=== PATIENT | female | born 1950 | race Caucasian/White ===

== ENCOUNTER 2016-03-03 16:37 | Inpatient (IN) | payer BC, OTHER ==
[2016-03-03 17:05] VITALS: BMI 11.0
--- NOTE | 2016-03-03 17:12 | PDOC ---
History of Present Illness - General Chief Complaint: Altered Mental Status Stated Complaint: CONFUSED Time Seen by Provider: 03/03/16 17:11 History Source: Patient, Family Exam Limitations: Clinical Condition - History of Present Illness Initial Comments: 03/03/16 20:25 The patient is a 65 year old female accompanied by her with a significant past medical history of end-stage renal disease, dialysis (T, , Mon, last dialysis monday), COPD, hypertension, and throat cancer s/p chemo 8 weeks ago) who presents to the Emergency Department with dyspnea for 20 minutes prior to arrival and altered mental status. As per the , the patient has not been acting herself all day. He states the patient was fine yesterday, but did not sleep last night. The states that the patient has increased her oxygen from 2 to 4 L this week secondary to sob. The patient has had bilateral lower extremity edema for the past 3 weeks. The patient denies fever, chills, abdominal pain, nausea, vomiting, dysuria, chest pain, headache, dizziness. As per , the patient missed her dialysis today. History is limited. 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 Pena Past History - Past Medical History Allergies/Adverse Reactions: Allergies Allergy/AdvReac Type Severity Reaction Status Date / Time No Known Drug Allergies Allergy Verified 03/03/16 17:01 Home Medications: Ambulatory Orders Albuterol 2.5/Ipratropium 0.5 [Duoneb -] 1 neb IH QID 07/15/15 Multivitamins with Iron [Daily Isadora with Iron] 1 each PO DAILY 07/15/15 Nifedipine ER [Procardia XL -] 90 mg PO DAILY 07/15/15 Paroxetine HCl 30 mg PO DAILY 07/15/15 Tiotropium [place] [Spiriva] 1 inh PO DAILY 07/15/15 Enalapril Maleate [Vasotec -] 20 mg PO BID #60 tablet 07/17/15 Labetalol HCl [Normodyne -] 400 mg PO TID #180 tablet 07/17/15 Sevelamer Carbonate [Renvela -] 800 mg PO TID 09/29/15 Budesonide/Formeterol Fumarate [SYMBICORT 160/4.5mcg -] 1 inh PO BID 10/13/15 Furosemide [Lasix -] 80 mg PO DAILY #30 tablet 10/15/15 Anemia: Yes Asthma: No Cancer: No Cardiac Disorders: No CVA: No COPD: Yes CHF: No Dementia: No Diabetes: No Dialysis: Yes (right chest shiley, dialysis tue/thurs/sat) GI Disorders: No Disorders: No HTN: Yes Hypercholesterolemia: No Liver Disease: No Seizures: No Thyroid Disease: No - Surgical History Abdominal Surgery: No Appendectomy: No Cardiac Surgery: No Cholecystectomy: No Lung Surgery: No Neurologic Surgery: No Orthopedic Surgery: Yes (2009 LAMINECTOMY) - Immunization History Immunization Up to Date: Yes - Psycho/Social/Smoking Cessation Hx Anxiety: No Suicidal Ideation: No Smoking History: Former smoker Have you smoked in the past 12 months: Yes Number of Cigarettes Smoked Daily: 10 If you are a former smoker, when did you quit?: 2016 Cigars Per Day: 0 Information on smoking cessation initiated: No 'Breaking Loose' booklet given: 09/16/15 Hx Alcohol Use: No Drug/Substance Use Hx: No Substance Use Type: None Hx Substance Use Treatment: No Review of Systems - Review of Systems Comments:: 03/03/16 20:26 Constitutional - +dedreeased appeptite no reported Fever, Chills, weakness, HEENT: no reported vision changes, sore throat Respiratory: +sob no reported cough, hemoptysis Cardiac: no reported chest pain, palpitations, light headedness, leg swelling Abd/GI: no reported abd pain, nausea, vomiting, blood per rectum, melena, diarrhea : no reported dysuria, frequency, discharge Musculskelatal - no reported back pain, joint swelling skin - no reported bruising, erythema, rash neurological: +ams no reported headache, numbness, focal weakness, tingling, ataxia, weakness hematologic: no reported anemia, easy bruising, easy bleeding *Physical Exam - Vital Signs Last Vital Signs Temp Pulse Resp BP Pulse Ox 96.3 F L 57 L 24 147/77 03/03/16 17:01 03/03/16 17:01 03/03/16 17:01 03/03/16 17:01 - Physical Exam Comments: 03/03/16 20:27 GENERAL: The patient is awake, alert x oriented x 2 (self, place) tachypneic, cachectic appearing, generally weak appearing HEAD: Normocephalic, atraumatic. EYES: extraocular movements intact, sclera anicteric, conjunctiva clear. ENT: Normal voice, dry mucous membranes. NECK: Normal range of motion, supple LUNGS: distant breath sounds likely due to body habitus HEART: Regular rate and rhythm, normal S1 and S2 without murmur, rub or gallop. ABDOMEN: G tube in place, Soft, nontender, normoactive bowel sounds. No guarding, no rebound. EXTREMITIES: Normal range of motion, mild edema on feet without tenderness. NEUROLOGICAL: No facial assymetry, Normal speech, moving all 4 extremities spontnaeously and symmetrically PSYCH: Normal mood, normal affect. SKIN: Warm, Dry, normal turgor, Heart Score/ECG Review - ECG Impressions Comment:: 03/03/16 20:31 Twelve-lead EKG was performed and reviewed by me. There is normal sinus rhythm with a HR of 56. lvh with repolarization. sinus bradycardia ED Treatment Course - LABORATORY CBC & Chemistry Diagram: 03/03/16 17:04 03/03/16 17:04 - RADIOLOGY Radiology Studies Ordered: Category Date Time Status CHEST X-RAY PORTABLE* [RAD] Stat Radiology 03/03/16 17:03 Ordered Medical Decision Making - Medical Decision Making 03/03/16 17:23 65y F hx of ESRD s/p dialysis, throat ca s/p chemo radiation (several months ago ), Tu presents with respiratorey distress and AMS - The patient seems to have been deteriating gradually over the past week with decraesd oral intake, on exam the pt appears tachpneic, distatant breath sounds secondary to her body habitus differential includes occult infection, metabolic dernagement, dehydration pt given fluids for hydration will ck xray, ua, labs will reassess 03/03/16 20:32 case d/w dr. pena leukocyotosis of 21 recommends starting abx for broad coverage as pt is immunocomprimozed due to ESRD will give pt vanc and cefepime pts k at 5.2, does not need immediate dialysis cxr c/w mild congestion. pts labs also noted for hypoglycemia - pts mental and respiratory status improved after gettnig D50 will admi tpt for further management I spent ~35 minutes of Critical Care time, excluding separately billable procedures, involving high complexity decision making to assess, manipulate and support vital system function(s) to treat single or multiple vital organ system failure and/or to prevent further life threatening deterioration of the patient' s condition. 03/03/16 20:[address] olivarez agreed with mangement will admit to telemetry Case discussed in detail with admitting physician including history, physical exam and ancillary studies. Admitting physician has assumed care for the patient, will follow all pending diagnostics and will complete the evaluation and treatment. *DC/Admit/Observation/Transfer Diagnosis at time of Disposition: ESRD (end stage renal disease), Hypoglycemia Leukocytosis Qualifiers: Leukocytosis type: unspecified Qualified Code(s): D72.829 - Elevated white blood cell count, unspecified - Discharge Dispostion Admit: Yes - Referrals Referrals: Christoph Lemons [Primary Care Provider] -
[2016-03-03] MEDS ORDERED: SODIUM CHLORIDE 1,000 ML IV ONE (17:22)
[2016-03-03 17:38] LABS: ARTERIAL BLD GAS O2 SATURATION 98.9 % (90-98.9); ARTERIAL BLOOD GAS BASE EXCESS -2.7 meq/l (-2-2); ARTERIAL BLOOD GAS HCO3 23.2 meq/L (22-26)
[2016-03-03 17:39] LABS: ALLENS TEST POSITIVE; ART PUNCT SITE RIGHT RADIAL; LPM/O2% 4L; PT. ON O2? YES; TYPE OF O2 NASAL
[2016-03-03 18:27] LABS: ALBUMIN 2.3 g/dl (3.4-5.0); BILIRUBIN,TOTAL 0.5 mg/dL (0.2-1.0); CREATININE 4.7 mg/dL (0.55-1.02)
[2016-03-03 18:29] LABS: TROPONIN I 0.07 ng/ml (0.00-0.05)
[2016-03-03 18:30] LABS: MCH 29.6 pg (25.7-33.7); MCHC 29.9 g/dl (32.0-36.0); MEAN CELL VOLUME 99.1 fl (80-96); MEAN PLT VOLUME 8.3 fl (7.5-11.1); PLATELET COUNT 268 K/MM3 (134-434); RDW 20.7 % (11.6-15.6); WHITE BLOOD COUNT 21.2 K/mm3 (4.0-10.0)
[2016-03-03 18:31] LABS: INR 1.24 (0.82-1.09); PROTHROMBIN TIME (PATIENT) 13.7 SEC (9.98-11.88)
[2016-03-03] MEDS ORDERED: DEXTROSE 50%-WATER 50 ML DISP.SYRIN ONE (18:58)
[2016-03-03] MEDS ORDERED: DEXTROSE 50%-WATER 50 ML VIAL IVPUSH ONE (19:04)
[2016-03-03] MEDS ORDERED: VANCOMYCIN 1,000 MG in DEXTROSE 5%-WATER - 250 ML IVPB ONE (20:24)
[2016-03-03] MEDS ORDERED: CEFEPIME HCL 2 GM VIAL (RESTRICTED TO ID) IVPB ONE (20:24)
[2016-03-03] MEDS ORDERED: CEFEPIME 100 ML IVPB ONE (20:26)
[2016-03-03] MEDS ORDERED: VANCOMYCIN 1 GRAM (PRE-DOCKED) 250 ML IVPB ONE (20:26)
[2016-03-03] MEDS ORDERED: HEPARIN NA (PORCINE) 5,000 UNITS/ML 1ML VIAL SQ SCH (20:45)
[2016-03-03 21:06] LABS: URINE APPEARANCE CLOUDY; URINE BILIRUBIN NEGATIVE (NEGATIVE); URINE COLOR DKYELLOW; URINE GLUCOSE (UA) NEGATIVE (NEGATIVE); URINE KETONE NEGATIVE (NEGATIVE); URINE LEUK ESTERASE NEGATIVE (NEGATIVE); URINE NITRITE NEGATIVE (NEGATIVE); URINE UROBILINOGEN NEGATIVE E.U./dl (0.2-1.0)
--- NOTE | 2016-03-03 21:12 | HP ---
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 As per , pt not herself today. Also with increased B/ L LE edema x 3 weeks and decreased appetite. On exam, pt with no acute complaints. Denies current SOB, pain, N/V/D. States her cough is the same as it always is. ER course was notable for: (1) WBC 21.2 (2) Hgb 9.5 (3) CXR with mild congestion Recent Travel: pt denies PAST MEDICAL HISTORY: ESRD on dialysis T,,Sa, HTN throat CA last chemo 8 weeks ago anemia PAST SURGICAL HISTORY: lumbar spine surgery R upper chest mediport L AV graft upper arm G tube hysterectomy Social History: Smokin packs/day for 50 years; currently smokes 1/2 pack /day Alcohol: pt denies Drugs: pt denies Family History: Mother - breast cancer Father - COPD Sister - depression, suicide Allergies No Known Drug Allergies Allergy (Verified 03/03/16 17:01) HOME MEDICATIONS: 3 Medication Instructions Recorded Albuterol 2.5/Ipratropium 0.5 1 neb IH QID 07/15/15 [Duoneb -] Multivitamins with Iron [Daily 1 each PO DAILY 07/15/15 Isadora with Iron] Nifedipine ER [Procardia XL -] 90 mg PO DAILY 07/15/15 Paroxetine HCl 30 mg PO DAILY 07/15/15 Tiotropium [place] [Spiriva] 1 inh PO DAILY 07/15/15 Enalapril Maleate [Vasotec -] 20 mg PO BID #60 tablet 07/17/15 Labetalol HCl [Normodyne -] 400 mg PO TID #180 tablet 07/17/15 Sevelamer Carbonate [Renvela -] 800 mg PO TID 09/29/15 Budesonide/Formeterol Fumarate 1 inh PO BID 10/13/15 [SYMBICORT 160/4.5mcg -] Furosemide [Lasix -] 80 mg PO DAILY #30 tablet 10/15/15 REVIEW OF SYSTEMS CONSTITUTIONAL: Present: generalized weakness, malaise, loss of appetite Absent: fever, chills, diaphoresis, weight change HEENT: Absent: rhinorrhea, nasal congestion, throat pain, throat swelling, difficulty swallowing, mouth swelling, ear pain, eye pain, visual changes CARDIOVASCULAR: Absent: chest pain, syncope, palpitations, irregular heart rate, lightheadedness , peripheral edema RESPIRATORY: Present: moist cough, shortness of breath Absent: wheezing, stridor, hemoptysis GASTROINTESTINAL: last BM today Absent: abdominal pain, abdominal distension, nausea, vomiting, diarrhea, constipation, melena, hematochezia GENITOURINARY: Absent: dysuria, frequency, urgency, hesitancy, hematuria, flank pain, genital pain MUSCULOSKELETAL: Absent: myalgia, arthralgia, joint swelling, back pain, neck pain SKIN: Absent: rash, itching, pallor HEMATOLOGIC/IMMUNOLOGIC: Absent: easy bleeding, easy bruising, lymphadenopathy, frequent infections ENDOCRINE: Absent: unexplained weight gain, unexplained weight loss, heat intolerance, cold intolerance NEUROLOGIC: Absent: headache, focal weakness or paresthesias, dizziness, unsteady gait, seizure, mental status changes, bladder or bowel incontinence PSYCHIATRIC: Absent: anxiety, depression, suicidal or homicidal ideation, hallucinations. PHYSICAL EXAMINATION Vital Signs - 24 hr 3 03/03/16 03/03/16 03/03/16 17:01 19:16 20:36 Temperature 96.3 F L Pulse Rate 57 L Pulse Rate [ 53 L 56 L Apical] Respiratory 24 16 Rate Blood Pressure 147/77 Blood Pressure 134/78 120/68 [Right Arm] GENERAL: Awake, alert, and oriented to person, place and year, not month or day. in no acute distress. + cachectic HEAD: Normal with no signs of trauma. EYES: Pupils equal, round and reactive to light, extraocular movements intact, sclera anicteric, conjunctiva clear. No lid lag. EARS, NOSE, THROAT: Ears normal, nares patent, oropharynx clear without exudates. Dry mucous membranes. NECK: Normal range of motion, supple without lymphadenopathy, JVD, or masses. LUNGS: Breath sounds equal, clear to auscultation bilaterally. No wheezes, and no crackles. No accessory muscle use. diminished bases HEART: Regular rate and rhythm, normal S1 and S2 without murmur, rub or gallop. ABDOMEN: Soft, nontender, not distended, normoactive bowel sounds, no guarding, no rebound, no masses. No hepatomegaly or splenomegaly. MUSCULOSKELETAL: Normal range of motion at all joints. No bony deformities or tenderness. No CVA tenderness. UPPER EXTREMITIES: 2+ pulses, warm, well-perfused. No cyanosis. No clubbing. Cap refill <2 seconds. No peripheral edema. LOWER EXTREMITIES: 2+ pulses, warm, well-perfused. No calf tenderness. 2+ pitting edema bilat feet, no edema lower legs NEUROLOGICAL: Cranial nerves II-XII intact. Normal speech. Normal gait. PSYCHIATRIC: Cooperative. Good eye contact. Appropriate mood and affect. SKIN: Warm, dry, normal turgor, Rash noted to face, above eyebrows, left cheek, perioral and nasal areas. + yellow crusting with scabs. No pain. Laboratory Results - last 24 hr 3 03/03/16 03/03/16 03/03/16 17:04 17:04 17:04 WBC 21.2 H D RBC 3.19 L Hgb 9.5 L Hct 31.6 L MCV 99.1 H MCHC 29.9 L RDW 20.7 H D Plt Count 268 MPV 8.3 D Neutrophils % Y Lymphocytes % Y INR 1.24 H Puncture Site ABG pH ABG pCO2 at Pt Temp ABG pO2 at Pt Temp ABG HCO3 ABG O2 Sat (Measured) ABG O2 Content ABG Base Excess Ezekiel Test O2 Delivery Device Oxygen Flow Rate PEEP Sodium 140 Potassium 5.2 H D Chloride 102 Carbon Dioxide 24 Anion Gap 14 BUN 66 H D Creatinine 4.7 H D Creat Clearance w eGFR 9.39 Random Glucose 43 L* D Lactic Acid Calcium 8.0 L Total Bilirubin 0.5 D AST 20 D ALT 20 Alkaline Phosphatase 132 H D Creatine Kinase 44 Troponin I 0.07 H Total Protein 6.0 L Albumin 2.3 L D 3 03/03/16 03/03/16 17:04 17:35 WBC RBC Hgb Hct MCV MCHC RDW Plt Count MPV Neutrophils % Lymphocytes % INR Puncture Site Right radial ABG pH 7.30 L ABG pCO2 at Pt Temp 48.5 H ABG pO2 at Pt Temp 146.0 H D ABG HCO3 23.2 ABG O2 Sat (Measured) 98.9 ABG O2 Content 12.5 L ABG Base Excess -2.7 L Ezekiel Test Positive O2 Delivery Device Nasal Oxygen Flow Rate 4l PEEP 0.0 Sodium Potassium Chloride Carbon Dioxide Anion Gap BUN Creatinine Creat Clearance w eGFR Random Glucose Lactic Acid 1.782 Calcium Total Bilirubin AST ALT Alkaline Phosphatase Creatine Kinase Troponin I Total Protein Albumin 3 Urine Color Dkyellow 03/03/16 20:50 Urine Appearance Cloudy 03/03/16 20:50 Urine pH 5.0 (5.0-8.0) D 03/03/16 20:50 Ur Specific [place] 1.021 (1.001-1.035) 03/03/16 20:50 Urine Protein 2+ (NEGATIVE) H 03/03/16 20:50 Urine Glucose (UA) Negative (NEGATIVE) 03/03/16 20:50 Urine Ketones Negative (NEGATIVE) 03/03/16 20:50 Urine Blood 1+ (NEGATIVE) H 03/03/16 20:50 Urine Nitrite Negative (NEGATIVE) 03/03/16 20:50 Urine Bilirubin Negative (NEGATIVE) 03/03/16 20:50 Ur Leukocyte Esterase Negative (NEGATIVE) 03/03/16 20:50 Urine RBC <1 /hpf (0-3) 03/03/16 20:50 Urine WBC 3 /hpf (3-5) 03/03/16 20:50 Ur Epithelial Cells Few /hpf (FEW) 03/03/16 20:50 Urine Mucus Rare 03/03/16 20:50 CXR: Impression: Cardiomegaly and probable mild congestion ECG: sinus bradycardia with a HR of 56. No ST/T changes ASSESSMENT/PLAN: 65yF with PMH ESRD, anemia, COPD, HTN, throat CA presented to the ED with SOB and altered mental status. Leukocytosis - unclear etiology. Given cefepime and vanco in the ED - ID consult - Will treat for pneumonia given moist cough despite neg CXR. cont cefepime 1g q24h (after dialysis on dialysis days) dehydration - clinically appears dry despite dialysis status. - 1L NS bolus given in ED and still appears dry, cont NS @ 50mL/hr x 1 liter ESRD - missed dialysis today - renal consult for dialysis elevated troponin - trend same, unlikely ACS, no chest pain - if trending up, start ASA and plavix - cardiology consult impetigo - mupirocin ointment to rash on face hypoglycemia - given D50 in ED - monitor FSBS q4h, start IVF with dextrose if less than 70 HTN - cont home medications DVT PPX - heparin 5000u BID FEN - NS @50cc/hr - potassium 5.2, repeat in am - regular diet as tolerated. Would consider initiation of tube feed if in agreement with goals of care. Dispo: Pt currently requires inpatient care. Needs determination of goals of care given poor nutritional status, cachectic state. Visit type - Emergency Visit Emergency Visit: Yes ED Registration Date: 03/03/16 Care time: The patient presented to the Emergency Department on the above date and was hospitalized for further evaluation of their emergent condition. - New Patient This patient is new to me today: Yes Date on this admission: 03/03/16 - Critical Care Critical Care patient: No
[2016-03-03 21:19] LABS: URINE BLOOD 1+ (NEGATIVE); URINE PROTEIN 2+ (NEGATIVE)
[2016-03-03 21:21] LABS: URINE HYALINE CAST 8 /lpf; URINE MUCUS RARE; URINE RBC <1 /hpf (0-3); URINE WBC 3 /hpf (3-5)
[2016-03-03] MEDS ORDERED: SODIUM CHLORIDE 1,000 ML IV SCH (22:45)
[2016-03-03 23:23] LABS: PLATELET ESTIMATE ADEQUATE (NORMAL)
[2016-03-03 23:24] LABS: ANISOCYTOSIS 2+; HYPOCHROMIA 2+; TEAR DROP CELLS FEW
[2016-03-04] MEDS ORDERED: ALBUTEROL SO4 0.083% IH SOL 2.5 MG/3 ML VIAL.NEB. NEB SCH
[2016-03-04] MEDS: HEPARIN NA (PORCINE) 5,000 UNITS/ML 1ML VIAL SQ SCH ×3 (00:34→21:31)
[2016-03-04] MEDS: MUPIROCIN 2% TOPICAL OINTMENT 22 GM TUBE TP SCH ×3 (00:34→21:30)
[2016-03-04] MEDS: BUDESONIDE/FORMETEROL FUMARATE 160/4.5 mcg INHALER IH SCH ×2 (00:37→09:42)
[2016-03-04] MEDS: ACLIDINIUM BROMIDE 400 MCG/INH AERO.POWD IH SCH ×3 (00:37→10:12)
[2016-03-04] MEDS: ENALAPRIL MALEATE 10 MG TABLET (FP) PO SCH ×2 (01:50→09:44)
[2016-03-04] MEDS: LABETALOL HCL 200 MG TABLET (FP) PO SCH ×2 (01:50→06:40)
[2016-03-04 03:42] LABS: TROPONIN I 0.06 ng/ml (0.00-0.05)
[2016-03-04] MEDS ORDERED: PT OWN MED DRAWER 7, Y5N ONE ×2 (05:28→05:36)
[2016-03-04] MEDS ORDERED: DEXTROSE 50%-WATER 50 ML DISP.SYRIN ONE (06:16)
[2016-03-04] MEDS ORDERED: DEXTROSE 50%-WATER 50 ML VIAL IVPUSH ONE ×2 (06:30→15:57)
[2016-03-04] MEDS ORDERED: DEXTROSE 5%-NORMAL SALINE 1,000 ML IV SCH (06:45)
--- NOTE | 2016-03-04 06:50 | HOSP ---
Subjective - Review of Symptoms Subjective: Called by nurse who reported pt sugar 50. Pt alert, responsive, no acute complaints. Physical Examination Vital Signs: Vital Signs Temperature 97.4 F L 03/04/16 02:31 Pulse Rate 58 L 03/04/16 02:31 Respiratory Rate 16 03/04/16 02:31 Blood Pressure 129/68 03/04/16 02:31 O2 Sat by Pulse Oximetry (%) Cardiovascular: Yes: Regular Rate and Rhythm Respiratory: Yes: Regular, CTA Bilaterally, Other (pulse ox 94% on 2LNC). No: Rales, Rhonchi Hospitalist Encounter Assessment: Hypoglycemia - D50 ordered. Change IVF to D5NS@50cc/hr. Repeat BGM in 1 hour, cont BGM q4h.
[2016-03-04 07:51] LABS: BASOPHIL 0.5 % (0-2.0); MCH 30.4 pg (25.7-33.7); MCHC 30.8 g/dl (32.0-36.0); MEAN CELL VOLUME 98.9 fl (80-96); NEUTROPHILS 95.9 % (42.8-82.8); PLATELET COUNT 224 K/MM3 (134-434); RDW 20.3 % (11.6-15.6); WHITE BLOOD COUNT 21.1 K/mm3 (4.0-10.0)
[2016-03-04 08:19] LABS: ALBUMIN 2.1 g/dl (3.4-5.0); BILIRUBIN,TOTAL 0.5 mg/dL (0.2-1.0); CALCIUM 7.1 mg/dL (8.5-10.1); CREATININE 4.8 mg/dL (0.55-1.02); MAGNESIUM 1.9 mg/dL (1.8-2.4); TOT PROT 5.5 g/dl (6.4-8.2)
[2016-03-04] MEDS: SEVELAMER CARBONATE 800 MG TAB (FP) PO SCH ×3 (08:20→18:58)
[2016-03-04 08:48] LABS: PHOSPHOROUS 7.9 mg/dL (2.5-4.9)
[2016-03-04 08:54] LABS: TROPONIN I 0.06 ng/ml (0.00-0.05)
--- NOTE | 2016-03-04 09:11 | EKG ---
Test Reason : Blood Pressure : / mmHG Vent. Rate : 056 BPM Atrial Rate : 056 BPM P-R Int : 148 ms QRS Dur : 090 ms QT Int : 472 ms P-R-T Axes : 078 077 074 degrees QTc Int : 455 ms POOR DATA QUALITY, INTERPRETATION MAY BE ADVERSELY AFFECTED SINUS BRADYCARDIA POSSIBLE LEFT ATRIAL ENLARGEMENT LEFT VENTRICULAR HYPERTROPHY WITH REPOLARIZATION ABNORMALITY ABNORMAL ECG Confirmed by WILD LEE MD ([id number]) on 03/04/2016 9:10:50 AM Referred By: Overread By: WILD LEE MD
[2016-03-04] MEDS ORDERED: NIFEdipine E.R. 90 MG TABLET (FP) PO SCH (10:00)
[2016-03-04] MEDS ORDERED: MULTIVITAMINS (DAILY MVI) TABLET (FP) PO SCH (10:00)
[2016-03-04] MEDS ORDERED: FUROSEMIDE 40 MG TABLET (FP) PO SCH (10:00)
[2016-03-04] MEDS ORDERED: CEFEPIME HCL 2 GM VIAL (RESTRICTED TO ID) IVPB SCH (10:00)
[2016-03-04] MEDS ORDERED: PARoxetine HCL 10 MG TABLET (FP) PO SCH (10:00)
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
--- NOTE | 2016-03-04 12:31 | PN ---
Progress Note (short form) - Note Progress Note: PULMONARY CONSULTATION DICTATED 03/04/16 IMP ACUTE ON CHRONIC HYPOXEMIC/HYPERCAPNEIC RESPIRATORY FAILURE END STAGE COPD LIKELY ASPIRATION H/O THROAT CA S/P RT/CHEMO ESRD ON HD HTN PLAN INHALED BRONCHODILATORS O2 BIPAP PRN ANTIBIOTICS ASPIRATION PRECAUTIONS HD PER RENAL F/U CHEST X-RAY ABG PALLATIVE CARE EVALUATION OVERALL PROGNOSIS POOR DR PARADA Problem List - Problems (1) COPD (chronic obstructive pulmonary disease) case management patient Code(s): [id number] - (2) Leukocytosis Code(s): D72.829 - ELEVATED WHITE BLOOD CELL COUNT, UNSPECIFIED Qualifiers: Leukocytosis type: unspecified Qualified Code(s): D72.829 - Elevated white blood cell count, unspecified (3) ESRD (end stage renal disease) Code(s): N18.6 - END STAGE RENAL DISEASE (4) Acute respiratory failure with hypoxemia Code(s): J96.01 - ACUTE RESPIRATORY FAILURE WITH HYPOXIA (5) COPD exacerbation Code(s): J44.1 - CHRONIC OBSTRUCTIVE PULMONARY DISEASE W (ACUTE) EXACERBATION (6) Pneumonia Code(s): J18.9 - PNEUMONIA, UNSPECIFIED ORGANISM Qualifiers: Pneumonia type: due to unspecified organism Laterality: right Lung location: unspecified part of lung Qualified Code(s): J18.9 - Pneumonia, unspecified organism (7) Renal failure Code(s): N19 - UNSPECIFIED KIDNEY FAILURE (8) Smoker Code(s): F17.200 - NICOTINE DEPENDENCE, UNSPECIFIED, UNCOMPLICATED (9) Tobacco dependence Code(s): F17.200 - NICOTINE DEPENDENCE, UNSPECIFIED, UNCOMPLICATED (10) Anemia, chronic renal failure Code(s): N18.9 - CHRONIC KIDNEY DISEASE, UNSPECIFIED D63.1 - ANEMIA IN CHRONIC KIDNEY DISEASE Qualifiers: Chronic kidney disease stage: stage 4 (severe) Qualified Code(s): N18.4 - Chronic kidney disease, stage 4 (severe); D63.1 - Anemia in chronic kidney disease (11) Acute on chronic respiratory failure with hypoxia and hypercapnia Code(s): J96.21 - ACUTE AND CHRONIC RESPIRATORY FAILURE WITH HYPOXIA J96.22 - ACUTE AND CHRONIC RESPIRATORY FAILURE WITH HYPERCAPNIA
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
[2016-03-04] MEDS ORDERED: ALBUTEROL SO4 2.5/IPRATROPIUM 0.5 INH SOL 3 ML VIAL.NEB. NEB PRN (12:47)
--- NOTE | 2016-03-04 14:27 | CONS ---
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 She was admitted to [facility] on March 03 with complaint of increasing shortness of breath. The patient is chronically dyspneic. Apparently on the day of admission she started develop worsening dyspnea and altered mental status. According to the patient's , she was not acting herself throughout the day, and she was fine the day prior. The patient denied any chest pain, nausea, vomiting, diaphoresis. Denied hemoptysis. The patient was admitted. On admission, she was felt to have possible aspiration pneumonia. She was placed on antibiotic therapy as well as inhaled bronchodilators and O2. PAST MEDICAL HISTORY: Again, includes throat cancer. Last chemotherapy 2 months ago. Spine surgery. End-stage renal disease on hemodialysis. COPD on O2. Hypertension. SOCIAL HISTORY: Tobacco. No occupational exposures. CURRENT MEDICATIONS: Include Vasotec, Symbicort, Zosyn, Bactroban, Paxil, Tudorza, albuterol, Lasix, Procardia, Tab-A-Isadora, Renvela. REVIEW OF SYSTEMS: Positive dyspnea. No chest pain, no palpitations. No abdominal pain. PHYSICAL EXAMINATION: General: The patient is a markedly cachectic white female well developed, dyspneic at rest. Vital Signs: She is currently afebrile. Heart rate is 56, O2 saturation is 90 % on 2 L, respiratory rate 18, blood pressure 131/75. HEENT: Normocephalic and atraumatic. Neck: Supple. Heart: Regular with S1, S2. Chest: Diminished breath sounds bilaterally. Abdomen: Soft. Bowel sounds positive. Extremities: No cyanosis or edema. LABORATORIES: INR 1.24, WBC 21.1, hemoglobin 9.2, hematocrit 30, platelet count 224,000. Blood gas: PH 7.30, PCO2 of 48, PO2 of 146, bicarbonate 23, and saturation of 98. That was on 4 L nasal O2. Chemistries: BUN 74, creatinine 4.8, glucose 474. Chest x-ray: Cardiomegaly, mild congestion. IMPRESSION: 1. Acute on chronic hypoxemic hypercapnic respiratory failure. 2. Likely aspiration pneumonia. 3. Advanced chronic obstructive pulmonary disease on oxygen. 4. Throat cancer status post chemotherapy. 5. End-stage renal disease on hemodialysis. 6. Hypertension. PLAN: IV antibiotics as per Infectious Disease. Supplemental O2. Inhaled bronchodilators. Nutritional support. Hemodialysis as per Renal. Overall prognosis is poor. MIKE PARADA M.D. [id number] MTDD
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
[2016-03-04] MEDS ORDERED: SODIUM CHLORIDE 1,000 ML IV STA (15:41)
[2016-03-04] MEDS ORDERED: DEXTROSE 50%-WATER 50 ML VIAL ONE (15:44)
[2016-03-04] MEDS ORDERED: DOPAMINE 400 MG/D5W - 250 ML IVPB SCH (15:45)
--- NOTE | 2016-03-04 15:48 | PN ---
Teaching Attending Note Name of Resident: Cory Pardo (Nephrology) ATTENDING PHYSICIAN STATEMENT I saw and evaluated the patient. I reviewed the resident's note and discussed the case with the resident. I agree with the resident's findings and plan as documented. Nephrology Consult Please see resident consult. Pt is a 65 year old female with pmhx of esrd copd htn and throat cancer. She came to hospital for shortness of breath and failure to thrive. She was found to be hypotensive this morning and a rapid response was called. She missed HD yesterday as she did not feel well. She has lost weight and has not been eating. PMHX esrd copd htn throat cancer pshx av graft social hx smoker ros sob family hx neg Impression 1. ESRD 2. dyspnea 3. COPD 4. throat cancer 5. respiratory failure requiring bipap 6. hyperkalemia 7. anemia Plan - upgrade to ICU - will attempt to dialyze if she stabilized - spoke to at length, she is DNR and DNI now, however he still wants her to be treated - stop all bp meds - pt did receive her bp meds in the am - send cultures - monitor bp closely Dr Pena
[2016-03-04] MEDS ORDERED: PIPERACILLIN/TAZOB 2.25 GM 50 ML IVPB SCH (18:00)
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
[2016-03-04] MEDS: PIPERACILLIN/TAZOB 2.25 GM 50 ML IVPB SCH (19:32)
[2016-03-04] MEDS: ARFORMOTEROL TARTRATE 15 MCG/2 ML VIAL NEB SCH (21:30)
[2016-03-04] MEDS ORDERED: ARFORMOTEROL TARTRATE 15 MCG/2 ML VIAL NEB SCH (22:00)
--- NOTE | 2016-03-04 22:07 | CONSULT ---
Consult Consult Specialty:: PULM / CRITICAL CARE Referred by:: Dr Vivar Reason for Consultation:: Respiratory failure, hypotension - History of Present Illness Chief Complaint: SOB History of Present Illness: 65 F with invasive throat CA s/p chemo and XRT, is ESRD on HD TIW, cachetic/ emaciated (27kg), was transferred to the ICU from the floor with AMS, hypotension and respiratory distress requiring NIPPV and Dopamine for BP support. She was made DNR/DNI by her family, she is now normotensive following fluid boluses and off Dopamine, she is ventilating and oxygenating well on NIPPV and awake and following commands. CXR looks hyperinflated and the retrocardiac space is hard to visualize, but can's exclude opacity/infiltrate. - History Source History Provided By: Medical Record, Transfer Record Limitations to Obtaining History: Clinical Condition - Past Medical History Cardio/Vascular: Yes: HTN Pulmonary: Yes: COPD Renal/: Yes: Renal Inusuff, Hemodialysis Musculoskeletal: Yes: Chronic low back pain - Past Surgical History Past Surgical History: Yes: AV Fistula/Graft - Alcohol/Substance Use Hx Alcohol Use: No - Smoking History Smoking history: Former smoker Have you smoked in the past 12 months: Yes Aproximately how many cigarettes per day: 10 If you are a former smoker, when did you quit?: 2016 - Social History ADL: Independent History of Recent Travel: No Home Medications - Allergies Allergies/Adverse Reactions: Allergies Allergy/AdvReac Type Severity Reaction Status Date / Time No Known Drug Allergies Allergy Verified 03/03/16 17:01 - Home Medications Home Medications: Ambulatory Orders Albuterol 2.5/Ipratropium 0.5 [Duoneb -] 1 neb IH QID 07/15/15 Multivitamins with Iron [Daily Isadora with Iron] 1 each PO DAILY 07/15/15 Nifedipine ER [Procardia XL -] 90 mg PO DAILY 07/15/15 Paroxetine HCl 30 mg PO DAILY 07/15/15 Tiotropium [place] [Spiriva] 1 inh PO DAILY 07/15/15 Enalapril Maleate [Vasotec -] 20 mg PO BID #60 tablet 07/17/15 Labetalol HCl [Normodyne -] 400 mg PO TID #180 tablet 07/17/15 Sevelamer Carbonate [Renvela -] 800 mg PO TID 09/29/15 Budesonide/Formeterol Fumarate [SYMBICORT 160/4.5mcg -] 1 inh PO BID 10/13/15 Furosemide [Lasix -] 80 mg PO DAILY #30 tablet 10/15/15 Family Disease History - Family Disease History Family Disease History: CA: Mother, Other: Father Review of Systems Unable to obtain ROS, reason: AMS Physical Exam Vital Signs: Vital Signs Temperature 97.2 F L 03/04/16 15:24 Pulse Rate 52 L 03/04/16 20:00 Respiratory Rate 16 03/04/16 20:00 Blood Pressure 126/75 03/04/16 20:00 O2 Sat by Pulse Oximetry (%) 98 03/04/16 17:12 Constitutional: Yes: Cachectic Eyes: Yes: PERRL, Other (sunken eyes) HENT: Yes: Other (bi-temporal wasting) Neck: Yes: Trachea Midline. No: Lymphadenopathy Cardiovascular: Yes: Bradycardia, S1, S2. No: JVD Respiratory: Yes: Diminished, On BiPap. No: Wheezes Gastrointestinal: Yes: Soft Extremities: Yes: WNL Edema: No Peripheral Pulses WNL: Yes Neurological: Yes: Alert Labs: CBC, BMP 03/04/16 05:35 03/04/16 05:35 Imaging - Results Chest X-ray: Report Reviewed, Image Reviewed Assessment/Plan Throat CA COPD Respiratory failure Severe malnutrition ESRD Hypovolemia Chronic anemia -Continue NIPPV - would consider d/c if in line with goals of care and treat air hunger/dyspnea with opiates -Nebs -Antibiotics -IVF with dextrose -Palliative care follow up -HD per renal if able to tolerate and if in line with goals of care - would consider stopping HD -DVT/GI PPx Critically Ill 35' DNR/DNI - would move towards comfort measures only Thank you for this interesting consult Silvino Jackson Pulm/Critical Care [employer]
[2016-03-05] MEDS: PIPERACILLIN/TAZOB 2.25 GM 50 ML IVPB SCH ×3 (01:26→18:02)
[2016-03-05] MEDS ORDERED: DEXTROSE 50%-WATER 50 ML VIAL ONE (04:30)
[2016-03-05 06:11] LABS: BASOPHIL 0.2 % (0-2.0); MCHC 29.4 g/dl (32.0-36.0); MEAN CELL VOLUME 98.8 fl (80-96); MEAN PLT VOLUME 8.4 fl (7.5-11.1); NEUTROPHILS 96.3 % (42.8-82.8); PLATELET COUNT 254 K/MM3 (134-434); RDW 20.4 % (11.6-15.6); WHITE BLOOD COUNT 25.4 K/mm3 (4.0-10.0)
[2016-03-05] MEDS ORDERED: DEXTROSE 50%-WATER 50 ML DISP.SYRIN IVPB ONE (06:15)
[2016-03-05 06:26] LABS: CREATININE 5.2 mg/dL (0.55-1.02)
[2016-03-05 07:06] LABS: CALCIUM 6.2 mg/dL (8.5-10.1); PHOSPHOROUS 10.2 mg/dL (2.5-4.9)
[2016-03-05 08:35] LABS: ARTERIAL BLD GAS O2 SATURATION 86.8 % (90-98.9); ARTERIAL BLOOD GAS BASE EXCESS -10.1 meq/l (-2-2)
[2016-03-05 08:36] LABS: ALLENS TEST POSITIVE; ART PUNCT SITE RIGHT BRACHIAL
[2016-03-05 08:37] LABS: ARTERIAL BLOOD GAS pH 7.23 (7.35-7.45); LPM/O2% 4L; PT. ON O2? YES; TYPE OF O2 NASAL
[2016-03-05 08:38] LABS: ARTERIAL BLOOD GAS HCO3 16.3 meq/L (22-26)
[2016-03-05] MEDS: SEVELAMER CARBONATE 800 MG TAB (FP) PO SCH (08:50)
[2016-03-05] MEDS: ARFORMOTEROL TARTRATE 15 MCG/2 ML VIAL NEB SCH ×2 (09:52→22:30)
--- NOTE | 2016-03-05 09:54 | PN ---
Progress Note (short form) - Note Progress Note: PULMONARY/CCM Pt seen and examined in the ICU. Breathing much improved, now off dopamine gtt. No fevers recorded. Last Vital Signs Temp Pulse Resp BP Pulse Ox 97.6 F 50 L 14 129/66 96 03/05/16 06:00 03/05/16 06:00 03/05/16 06:00 03/05/16 06:00 03/04/16 21:00 Intake & Output 03/02/16 03/03/16 03/04/16 03/05/16 23:59 23:59 23:59 23:59 Intake Total 1000 737 114 Balance 1000 737 114 Weight 60 lb 69 lb 14.4 oz Gen: less tachypneic, cachectic Heart: RRR Lung: distant breath sounds, no wheezes Abd: soft, nontender Ext: no edema CBC, BMP 03/05/16 05:00 03/05/16 05:00 Active Medications Albumin Human (Albumin Human 25% -) 12.5 gm IVPB Q30M [facility] Albuterol/Ipratropium (Duoneb -) 1 amp NEB Q4H PRN PRN Reason: SHORTNESS OF BREATH Arformoterol Tartrate (Brovana (Restricted To Pulmonology/Resp) -) 1 amp NEB BID [facility] Last Admin: 03/04/16 21:30 Dose: 1 amp Heparin Sodium (Porcine) (Heparin -) 5,000 unit SQ BID [facility] Last Admin: 03/04/16 21:31 Dose: 5,000 unit Piperacillin Sod/Tazobactam Sod (Zosyn 2.25gm Ivpb (Pre-Docked)) 50 mls @ 100 mls/hr IVPB Q8H-IV [facility] Last Admin: 03/05/16 01:26 Dose: 100 mls/hr Multivitamins/Minerals/Vitamin C (Tab-A-Vit -) 1 tab PO DAILY [facility] Mupirocin (Bactroban 2% Ointment -) 1 applic TP BID [facility] Last Admin: 03/04/16 21:30 Dose: 1 applic Sevelamer Carbonate (Renvela -) 800 mg PO TIDCM [facility] Last Admin: 03/05/16 08:50 Dose: 800 mg A/P Shock - ?Hypovolemic vs Septic resolving Acute on Chronic Hypoxic Respiratory Failure COPD Throat Ca ESRD on HD Hyperkalemia Metabolic Acidosis Anemia - IVF boluses as needed - HD per renal - continue empiric antibiotics - f/u cultures - O2 to keep SpO2 >90% - BiPAP to assist in work of breathing - continue discussions regarding goals of care - DVT prophylaxis
[2016-03-05] MEDS ORDERED: PARoxetine HCL 10 MG TABLET (FP) PO SCH (10:00)
--- NOTE | 2016-03-05 10:44 | PN ---
Physical Exam: SUBJECTIVE: Patient seen and examined in ICU. She appears comfortable, she wants to go home to her family. States her breathing is improved. Events: Off dopamine since 2100 Off Bipap OBJECTIVE: Vital Signs Period Temp Pulse Resp BP Sys/Morales Pulse Ox Last 24 Hr 97.1 F-97.8 F 44-58 14-18 43-129/29-75 90-98 PE Gen: appears depressed, weak Neuro: alert, awake, cn 2-12intact, answers questions appropriately HEENT: left eye abrasion, left mouth abrasion Pulm: diminish, scattered rhonchi, no wheezing, + NC, RCW port CV: s1s2 bradycarida no mrg Abd: + GT in tact, s nt Ext: no le edema, thin Skin: sacral ulcer, erythema to buttocks Laboratory Results - last 24 hr 03/05/16 03/05/16 03/05/16 05:00 05:00 05:00 WBC 25.4 H RBC 2.97 L Hgb 8.6 L Hct 29.3 L MCV 98.8 H MCHC 29.4 L RDW 20.4 H Plt Count 254 MPV 8.4 Neutrophils % 96.3 H Lymphocytes % 1.2 L Monocytes % 2.3 L Eosinophils % 0.0 Basophils % 0.2 Puncture Site ABG pH ABG pCO2 at Pt Temp ABG pO2 at Pt Temp ABG HCO3 ABG O2 Sat (Measured) ABG O2 Content ABG Base Excess Ezekiel Test O2 Delivery Device Oxygen Flow Rate PEEP Sodium 142 Potassium 5.2 H Chloride 107 Carbon Dioxide 18 L Anion Gap 17 H BUN 92 H D Creatinine 5.2 H POC Glucometer Random Glucose 132 H D Lactic Acid 1.607 Calcium 6.2 L* Phosphorus 10.2 H* D Magnesium 2.0 Prealbumin 12.8 L 03/05/16 03/05/16 05:20 08:32 WBC RBC Hgb Hct MCV MCHC RDW Plt Count MPV Neutrophils % Lymphocytes % Monocytes % Eosinophils % Basophils % Puncture Site Right brachial ABG pH 7.23 L* ABG pCO2 at Pt Temp 40.6 ABG pO2 at Pt Temp 68.0 L D ABG HCO3 16.3 L ABG O2 Sat (Measured) 86.8 L ABG O2 Content 11.0 L ABG Base Excess -10.1 L* Ezekiel Test Positive O2 Delivery Device Nasal Oxygen Flow Rate 4l PEEP 0.0 Sodium Potassium Chloride Carbon Dioxide Anion Gap BUN Creatinine POC Glucometer 168.72702 Random Glucose Lactic Acid Calcium Phosphorus Magnesium Prealbumin Active Medications Generic Name Dose Route Start Last Admin Trade Name Freq PRN Reason Stop Dose Admin Albumin Human 12.5 gm 03/04/16 16:00 Albumin Human 25% - IVPB Q30M [facility] Albuterol/Ipratropium 1 amp 03/04/16 16:47 Duoneb - NEB Q4H PRN SHORTNESS OF BREATH Arformoterol Tartrate 1 amp 03/04/16 22:00 03/05/16 09:52 Brovana (Restricted To Pulmonology/Resp) - NEB 1 amp BID TAM Administration Heparin Sodium (Porcine) 5,000 unit 03/04/16 22:00 03/04/16 21:31 Heparin - SQ 5,000 unit BID TAM Administration Piperacillin Sod/Tazobactam Sod 50 mls @ 100 mls/hr 03/04/16 18:00 03/05/16 01: 26 Zosyn 2.25gm Ivpb (Pre-Docked) IVPB 100 mls/hr Q8H-IV [facility]AM Administration Multivitamins/Minerals/Vitamin C 1 tab 03/05/16 10:00 Tab-A-Vit - PO DAILY [facility] Mupirocin 1 applic 03/04/16 22:00 03/04/16 21:30 Bactroban 2% Ointment - TP 1 applic BID [facility]AM Administration Sevelamer Carbonate 800 mg 03/04/16 17:30 03/05/16 08:50 Renvela - PO 800 mg TIDCM TAM Administration Assessment: 65 year old female ESRD on HD () throat CA (diagnosed 3-4 months ago received chemo/radiation), anemia admitted for AMS and worsening SOB , failure to thrive. Plan: 1. Acute on chronic hypoxic resp failure - Improved, stable on NC - Off Bipap; continue as needed - Cont brovana - Cont duonebs 2. Shock, ? hypovolemic - Improved - Lactic acid wnl, afebrile - Off dopamine - BP, HR stable at present 3. Aspiration pna - CXR shows dense left base - Cont zosyn (renal dosed) - ID seeing 4. ESRD TTS - Plan for HD today per nephrology - Albumin while on HD - Renal seeing 5. Hyperphosphatemia - Cont renvela, powder formulation for GT 6. Throat cancer - Unable to swallow d/t pain - s/p chemo 8 weeks ago - Soft foods 7. 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 Facial abrasions - Bacitracin bid CODE STATUS: DNR/DNI Visit type - Emergency Visit Emergency Visit: Yes ED Registration Date: 03/03/16 Care time: The patient presented to the Emergency Department on the above date and was hospitalized for further evaluation of their emergent condition. - New Patient This patient is new to me today: No - Critical Care Critical Care patient: No - Discharge Referral Referred to [facility] Med P.C.: No
[2016-03-05] MEDS: MULTIVITAMINS (DAILY MVI) TABLET (FP) PO SCH (10:53)
[2016-03-05] MEDS: MUPIROCIN 2% TOPICAL OINTMENT 22 GM TUBE TP SCH ×2 (10:54→22:00)
[2016-03-05] MEDS: HEPARIN NA (PORCINE) 5,000 UNITS/ML 1ML VIAL SQ SCH ×2 (10:54→22:00)
[2016-03-05] MEDS: BACITRACIN 30 GM TUBE TOPICAL OINTMENT TP SCH ×2 (11:00→22:00)
[2016-03-05] MEDS: SEVELAMER CARBONATE 0.8 GM POWDER PACKET PO SCH ×2 (12:00→17:45)
--- NOTE | 2016-03-05 13:13 | PROC ---
Central Line Insertion Indication: Other (HD access) Risks and Benefits Explained: Yes Consent on Chart: Yes Central Line: Dialysis Cath, Tri Lumen Anesthesia: 1% Lidocaine Sterile Technique: Yes Ultrasound Guided Assistance: Yes Position: Right Femoral Sterile Dressing Applied: Yes
[2016-03-05] MEDS: ALBUMIN HUMAN 25% 100 ML VIAL IVPB SCH ×2 (15:00→15:41)
--- NOTE | 2016-03-05 16:20 | CONSULT ---
Consult - Past Medical History Cardio/Vascular: Yes: HTN Pulmonary: Yes: COPD Renal/: Yes: Renal Inusuff, Hemodialysis Musculoskeletal: Yes: Chronic low back pain - Past Surgical History Past Surgical History: Yes: AV Fistula/Graft - Alcohol/Substance Use Hx Alcohol Use: No - Smoking History Smoking history: Former smoker Have you smoked in the past 12 months: Yes Aproximately how many cigarettes per day: 10 If you are a former smoker, when did you quit?: 2016 - Social History ADL: Independent History of Recent Travel: No Home Medications - Allergies Allergies/Adverse Reactions: Allergies Allergy/AdvReac Type Severity Reaction Status Date / Time No Known Drug Allergies Allergy Verified 03/03/16 17:01 - Home Medications Home Medications: Ambulatory Orders Albuterol 2.5/Ipratropium 0.5 [Duoneb -] 1 neb IH QID 07/15/15 Multivitamins with Iron [Daily Isadora with Iron] 1 each PO DAILY 07/15/15 Nifedipine ER [Procardia XL -] 90 mg PO DAILY 07/15/15 Paroxetine HCl 30 mg PO DAILY 07/15/15 Tiotropium [place] [Spiriva] 1 inh PO DAILY 07/15/15 Enalapril Maleate [Vasotec -] 20 mg PO BID #60 tablet 07/17/15 Labetalol HCl [Normodyne -] 400 mg PO TID #180 tablet 07/17/15 Sevelamer Carbonate [Renvela -] 800 mg PO TID 09/29/15 Budesonide/Formeterol Fumarate [SYMBICORT 160/4.5mcg -] 1 inh PO BID 10/13/15 Furosemide [Lasix -] 80 mg PO DAILY #30 tablet 10/15/15 Family Disease History - Family Disease History Family Disease History: CA: Mother, Other: Father Physical Exam Vital Signs: Vital Signs Temperature 97.2 F L 03/05/16 14:00 Pulse Rate 51 L 03/05/16 15:30 Respiratory Rate 18 03/05/16 15:30 Blood Pressure 126/78 03/05/16 15:30 O2 Sat by Pulse Oximetry (%) 95 03/05/16 09:00 Labs: CBC, BMP 03/05/16 05:00 03/05/16 05:00 Assessment/Plan Vascular Surgery Pt is a 65 year old female with pmhx of esrd copd htn and throat cancer. She came to hospital for shortness of breath and failure to thrive. She was found to be hypotensive this morning and a rapid response was called. She missed HD yesterday as she did not feel well. She has lost weight and has not been eating. Pt was on dopamine and now off of it today. Missed HD for two sessions. Today could not cannulate Left avg -- clotted. Shiley placed by ICU attending. PMHX esrd copd htn throat cancer pshx av graft social hx smoker ros sob family hx neg PE Head - NC/AT Lung - CTA , SOB Heart - RRR abd - soft,nt,nd ext - left arm ABG -- clotted. A/P Left arm avg clotted 1. When stable will need declotting. Dr. Simpson covering me. He will see pt and schedule pt for declotting. Cont HD via shiley. Please medcially optimize. Roger Pardo DO
--- NOTE | 2016-03-05 17:58 | PN ---
Progress Note, Physician History of Present Illness: Pt seen and examined at bedside. Graft was clotted. Femoral catheter was placed and pt dialyzed. She is off of pressors now. Pt is awake and appears a little more comfortable. - Current Medication List Current Medications: Active Medications Albuterol/Ipratropium (Duoneb -) 1 amp NEB Q4H PRN PRN Reason: SHORTNESS OF BREATH Arformoterol Tartrate (Brovana (Restricted To Pulmonology/Resp) -) 1 amp NEB BID [facility] Last Admin: 03/05/16 09:52 Dose: 1 amp Bacitracin (Bacitracin -) 1 applic TP BID [facility] Last Admin: 03/05/16 11:00 Dose: 1 applic Heparin Sodium (Porcine) (Heparin -) 5,000 unit SQ BID [facility] Last Admin: 03/05/16 10:54 Dose: 5,000 unit Piperacillin Sod/Tazobactam Sod (Zosyn 2.25gm Ivpb (Pre-Docked)) 50 mls @ 100 mls/hr IVPB Q8H-IV [facility] Last Admin: 03/05/16 10:54 Dose: 100 mls/hr Multivitamins/Minerals/Vitamin C (Tab-A-Vit -) 1 tab PO DAILY [facility] Last Admin: 03/05/16 10:53 Dose: 1 tab Mupirocin (Bactroban 2% Ointment -) 1 applic TP BID [facility] Last Admin: 03/05/16 10:54 Dose: 1 applic Sevelamer Carbonate (Renvela Powder Packet -) 0.8 gm PO TIDCM [facility] Last Admin: 03/05/16 17:45 Dose: 0.8 gm - Objective Vital Signs: Vital Signs Temperature 97.2 F L 03/05/16 14:00 Pulse Rate 52 L 03/05/16 16:30 Respiratory Rate 18 03/05/16 16:30 Blood Pressure 132/79 03/05/16 16:30 O2 Sat by Pulse Oximetry (%) 95 03/05/16 09:00 Constitutional: Yes: Calm, Cachectic Eyes: Yes: Conjunctiva Clear HENT: Yes: Atraumatic Cardiovascular: Yes: S1, S2 Respiratory: Yes: On Nasal O2 Gastrointestinal: Yes: Soft Musculoskeletal: Yes: Muscle Weakness Edema: No Neurological: Yes: Oriented Psychiatric: Yes: Oriented Labs: CBC, BMP 03/05/16 05:00 03/05/16 05:00 INR, PTT INR 1.24 (0.82-1.09) H 03/03/16 17:04 - ....Imaging Chest X-ray: Report Reviewed Assessment/Plan Current Medications Generic Name Dose Route Start Last Admin Trade Name Freq PRN Reason Stop Dose Admin Albuterol/Ipratropium 1 amp 03/04/16 16:47 Duoneb - NEB Q4H PRN SHORTNESS OF BREATH Arformoterol Tartrate 1 amp 03/04/16 22:00 03/05/16 09:52 Brovana (Restricted To Pulmonology/Resp) - NEB 1 amp BID TAM Administration Bacitracin 1 applic 03/05/16 11:00 03/05/16 11:00 Bacitracin - TP 1 applic BID TAM Administration Heparin Sodium (Porcine) 5,000 unit 03/04/16 22:00 03/05/16 10:54 Heparin - SQ 5,000 unit BID [facility]AM Administration Piperacillin Sod/Tazobactam Sod 50 mls @ 100 mls/hr 03/04/16 18:00 03/05/16 10: 54 Zosyn 2.25gm Ivpb (Pre-Docked) IVPB 100 mls/hr Q8H-IV [facility]AM Administration Multivitamins/Minerals/Vitamin C 1 tab 03/05/16 10:00 03/05/16 10:53 Tab-A-Vit - PO 1 tab DAILY [facility]AM Administration Mupirocin 1 applic 03/04/16 22:00 03/05/16 10:54 Bactroban 2% Ointment - TP 1 applic BID [facility] Administration Sevelamer Carbonate 0.8 gm 03/05/16 12:00 03/05/16 17:45 Renvela Powder Packet - PO 0.8 gm TIDCM [facility]AM Administration Impression 1. ESRD 2. dyspnea 3. COPD 4. throat cancer 5. respiratory failure requiring bipap 6. hyperkalemia 7. anemia 8. av graft malfunction Plan - pt dialyzed today - keep bp meds on hold - vascular eval for graft declot - will use femoral for now - start peg feeds and increase gradually - case discussed with hospital team - spoke to vascular surgery today - will follow Dr Pena
[2016-03-05] MEDS ORDERED: DEXTROSE 50%-WATER 50 ML VIAL IVPUSH ONE (18:47)
[2016-03-05] MEDS ORDERED: CALCIUM GLUCONATE 10% - 1,000 MG/10 ML VIAL IVPUSH ONE (18:54)
[2016-03-06] MEDS: DEXTROSE 50%-WATER 50 ML VIAL IVPUSH PRN ×2 (00:30→04:25)
[2016-03-06] MEDS: PIPERACILLIN/TAZOB 2.25 GM 50 ML IVPB SCH ×2 (02:00→09:38)
[2016-03-06] MEDS: ALBUTEROL SO4 2.5/IPRATROPIUM 0.5 INH SOL 3 ML VIAL.NEB. NEB PRN ×2 (06:24→11:18)
[2016-03-06 07:02] LABS: BASOPHIL 0.3 % (0-2.0); MCH 30.4 pg (25.7-33.7); MCHC 30.7 g/dl (32.0-36.0); MEAN CELL VOLUME 99.1 fl (80-96); NEUTROPHILS 95.5 % (42.8-82.8); PLATELET COUNT 189 K/MM3 (134-434); RDW 20.7 % (11.6-15.6); WHITE BLOOD COUNT 18.8 K/mm3 (4.0-10.0)
[2016-03-06 07:38] LABS: ALBUMIN 2.6 g/dl (3.4-5.0)
[2016-03-06 07:43] LABS: BILIRUBIN,TOTAL 0.4 mg/dL (0.2-1.0); CREATININE 3.7 mg/dL (0.55-1.02); PHOSPHOROUS 7.7 mg/dL (2.5-4.9); TOT PROT 5.4 g/dl (6.4-8.2)
[2016-03-06 08:00] LABS: ARTERIAL BLD GAS O2 SATURATION 99.6 % (90-98.9); ARTERIAL BLOOD GAS BASE EXCESS -4.1 meq/l (-2-2); ARTERIAL BLOOD GAS HCO3 20.6 meq/L (22-26); ARTERIAL BLOOD GAS pH 7.35 (7.35-7.45)
[2016-03-06 08:03] LABS: ALLENS TEST POSITIVE; ART PUNCT SITE RIGHT RADIAL; PT. ON O2? yes
[2016-03-06 08:04] LABS: CALCIUM 6.5 mg/dL (8.5-10.1)
[2016-03-06 08:04] LABS: LPM/O2% 60; TYPE OF O2 BIPAP
[2016-03-06 08:06] LABS: MECH. VENT. NO; ON ANTICOAG? NO
[2016-03-06 08:29] LABS: VENT RATE 20; VT/PRESS 14/7
[2016-03-06] MEDS: BACITRACIN 30 GM TUBE TOPICAL OINTMENT TP SCH ×2 (09:36→21:22)
[2016-03-06] MEDS: MUPIROCIN 2% TOPICAL OINTMENT 22 GM TUBE TP SCH (09:36)
[2016-03-06] MEDS: SEVELAMER CARBONATE 0.8 GM POWDER PACKET PO SCH ×2 (09:36→12:11)
[2016-03-06] MEDS: HEPARIN NA (PORCINE) 5,000 UNITS/ML 1ML VIAL SQ SCH ×2 (09:37→21:19)
[2016-03-06] MEDS: MULTIVITAMINS (DAILY MVI) TABLET (FP) PO SCH (09:40)
[2016-03-06] MEDS: ARFORMOTEROL TARTRATE 15 MCG/2 ML VIAL NEB SCH ×2 (09:46→22:23)
--- NOTE | 2016-03-06 09:58 | PN ---
Physical Exam: SUBJECTIVE: Patient seen and examined. Seen while on BIPAP. Glucse 59 this AM. OBJECTIVE: Vital Signs Period Temp Pulse Resp BP Sys/Morales Pulse Ox Last 24 Hr 96.9 F-97.6 F 49-63 11-20 101-153/48-96 95 Gen: frail appearing, cachetic female, on BIPAP Pulm: diminish, scattered rhonchi, no wheezing, RCW port CV: s1s2 bradycardic no mrg Abd: +PEG intact, soft, NT Ext: no le edema, thin, R femoral trialysis catheter Skin: multiple areas of ecchymosis, sacral ulcer, erythema to buttocks Laboratory Results - last 24 hr 03/05/16 03/05/16 03/05/16 14:35 17:48 20:16 WBC RBC Hgb Hct MCV MCHC RDW Plt Count MPV Neutrophils % Lymphocytes % Monocytes % Eosinophils % Basophils % Anticoagulation Therapy Puncture Site ABG pH ABG pCO2 at Pt Temp ABG pO2 at Pt Temp ABG HCO3 ABG O2 Sat (Measured) ABG O2 Content ABG Base Excess Ezekiel Test O2 Delivery Device Oxygen Flow Rate Vent Mode Vent Rate Mechanical Rate PEEP Pressure Support Vent Sodium Potassium Chloride Carbon Dioxide Anion Gap BUN Creatinine Creat Clearance w eGFR POC Glucometer 138.58179 69.36530 120.30549 Random Glucose Calcium Phosphorus Magnesium Total Bilirubin AST ALT Alkaline Phosphatase Total Protein Albumin 03/06/16 03/06/16 03/06/16 00:48 04:22 05:35 WBC 18.8 H RBC 2.74 L Hgb 8.3 L Hct 27.1 L MCV 99.1 H MCHC 30.7 L RDW 20.7 H Plt Count 189 D MPV 8.0 Neutrophils % 95.5 H Lymphocytes % 1.5 L D Monocytes % 2.7 L Eosinophils % 0.0 Basophils % 0.3 Anticoagulation Therapy Puncture Site ABG pH ABG pCO2 at Pt Temp ABG pO2 at Pt Temp ABG HCO3 ABG O2 Sat (Measured) ABG O2 Content ABG Base Excess Ezekiel Test O2 Delivery Device Oxygen Flow Rate Vent Mode Vent Rate Mechanical Rate PEEP Pressure Support Vent Sodium Potassium Chloride Carbon Dioxide Anion Gap BUN Creatinine Creat Clearance w eGFR POC Glucometer 59.65142 64.57541 Random Glucose Calcium Phosphorus Magnesium Total Bilirubin AST ALT Alkaline Phosphatase Total Protein Albumin 03/06/16 03/06/16 03/06/16 05:35 07:50 08:17 WBC RBC Hgb Hct MCV MCHC RDW Plt Count MPV Neutrophils % Lymphocytes % Monocytes % Eosinophils % Basophils % Anticoagulation Therapy No Puncture Site Right radial ABG pH 7.35 ABG pCO2 at Pt Temp 38.2 ABG pO2 at Pt Temp 175.0 H* ABG HCO3 20.6 L ABG O2 Sat (Measured) 99.6 H* ABG O2 Content 11.9 L ABG Base Excess -4.1 L Ezekiel Test Positive O2 Delivery Device Bipap Oxygen Flow Rate 60 Vent Mode S/t Vent Rate 20 Mechanical Rate No PEEP 0.0 Pressure Support Vent 14/7 Sodium 141 Potassium 3.2 L D Chloride 103 Carbon Dioxide 25 D Anion Gap 13 BUN 56 H D Creatinine 3.7 H D Creat Clearance w eGFR 12.37 POC Glucometer 70.18758 Random Glucose 105 D Calcium 6.5 L* Phosphorus 7.7 H D Magnesium 2.0 Total Bilirubin 0.4 AST 53 H D ALT 38 D Alkaline Phosphatase 94 D Total Protein 5.4 L Albumin 2.6 L D Active Medications Generic Name Dose Route Start Last Admin Trade Name Freq PRN Reason Stop Dose Admin Albuterol/Ipratropium 1 amp 03/04/16 16:47 03/06/16 06:24 Duoneb - NEB 1 amp Q4H PRN Administration SHORTNESS OF BREATH Arformoterol Tartrate 1 amp 03/04/16 22:00 03/06/16 09:46 Brovana (Restricted To Pulmonology/Resp) - NEB 1 amp BID TAM Administration Bacitracin 1 applic 03/05/16 11:00 03/06/16 09:36 Bacitracin - TP 1 applic BID TAM Administration Dextrose 50 ml 03/06/16 00:59 03/06/16 04:25 D50w (Vial) - IVPUSH 03/07/16 01:00 50 ml PRN PRN Administration hypoglycemia Heparin Sodium (Porcine) 5,000 unit 03/04/16 22:00 03/06/16 09:37 Heparin - SQ 5,000 unit BID TAM Administration Piperacillin Sod/Tazobactam Sod 50 mls @ 100 mls/hr 03/04/16 18:00 03/06/16 09: 38 Zosyn 2.25gm Ivpb (Pre-Docked) IVPB 100 mls/hr Q8H-IV TAM Administration Multivitamins/Minerals/Vitamin C 1 tab 03/05/16 10:00 03/06/16 09:40 Tab-A-Vit - PO 1 tab DAILY TAM Administration Mupirocin 1 applic 03/04/16 22:00 03/06/16 09:36 Bactroban 2% Ointment - TP 1 applic BID TAM Administration Sevelamer Carbonate 0.8 gm 03/05/16 12:00 03/06/16 09:36 Renvela Powder Packet - PO 0.8 gm TIDCM TAM Administration ASSESSMENT/PLAN: Assessment: 65 year old female ESRD on HD (//) throat CA (diagnosed 3-4 months ago received chemo/radiation), anemia admitted for AMS and worsening SOB , failure to thrive. Plan: 1. Acute on chronic hypoxic resp failure -on BIPAP - Cont brovana - Cont duonebs 2. Shock, ? hypovolemic - Improved - Lactic acid wnl, afebrile - has remained off dopamine 3. Aspiration pna - CXR shows dense left base - Cont zosyn (renal dosed) - ID following 4. ESRD TTS -HD per nephro 5. Hyperphosphatemia - Cont renvela, powder formulation for GT 6. Throat cancer - Unable to swallow d/t pain - s/p chemo 8 weeks ago 7. Failure to thrive - hypoglycemic this AM, have asked nurse to increase tube feeding rate -D50 prn pushes may be needed. Not on any hypoglycemics or insulin, likely due to poor intake 8. Facial abrasions - Bacitracin bid CODE STATUS: DNR/DNI Visit type - Emergency Visit Emergency Visit: Yes ED Registration Date: 03/03/16 Care time: The patient presented to the Emergency Department on the above date and was hospitalized for further evaluation of their emergent condition. - New Patient This patient is new to me today: Yes Date on this admission: 03/06/16 - Critical Care Critical Care patient: Yes Total Critical Care Time (in minutes): 35 Critical Care Statement: The care of this patient involved high complexity decision making to prevent further life threatening deterioration of the patient 's condition and/or to evalute & treat vital organ system(s) failure or risk of failure.
--- NOTE | 2016-03-06 10:15 | PN ---
Progress Note (short form) - Note Progress Note: PULMONARY/CCM Pt seen and examined in the ICU. Breathing continues to improve. Off pressors. Hypoglycemic episodes overnight requiring D50 pushes. No fevers recorded. Last Vital Signs Temp Pulse Resp BP Pulse Ox 97.4 F L 58 L 18 153/89 95 03/06/16 06:00 03/06/16 06:00 03/06/16 06:00 03/06/16 06:00 03/05/16 21:00 Intake & Output 03/03/16 03/04/16 03/05/16 03/06/16 23:59 23:59 23:59 23:59 Intake Total 1000 737 584 214 Balance 1000 737 584 214 Weight 60 lb 69 lb 14.4 oz 63 lb 4.8 oz Gen: frail, cachectic Heart: RRR Lung: distant breath sounds, no wheezes Abd: soft, nontender Ext: no edema CBC, BMP 03/06/16 05:35 03/06/16 05:35 Active Medications Albuterol/Ipratropium (Duoneb -) 1 amp NEB Q4H PRN PRN Reason: SHORTNESS OF BREATH Last Admin: 03/06/16 06:24 Dose: 1 amp Arformoterol Tartrate (Brovana (Restricted To Pulmonology/Resp) -) 1 amp NEB BID [facility] Last Admin: 03/06/16 09:46 Dose: 1 amp Bacitracin (Bacitracin -) 1 applic TP BID [facility] Last Admin: 03/06/16 09:36 Dose: 1 applic Dextrose (D50w (Vial) -) 50 ml IVPUSH PRN PRN PRN Reason: hypoglycemia Stop: 03/07/16 01:00 Last Admin: 03/06/16 04:25 Dose: 50 ml Heparin Sodium (Porcine) (Heparin -) 5,000 unit SQ BID [facility] Last Admin: 03/06/16 09:37 Dose: 5,000 unit Piperacillin Sod/Tazobactam Sod (Zosyn 2.25gm Ivpb (Pre-Docked)) 50 mls @ 100 mls/hr IVPB Q8H-IV TAM Last Admin: 03/06/16 09:38 Dose: 100 mls/hr Potassium Chloride (Potassium Chloride 10 Meq Premix Ivpb -) 100 mls @ 100 mls/ hr IVPB Q60M TAM Stop: 03/06/16 12:29 Multivitamins/Minerals/Vitamin C (Tab-A-Vit -) 1 tab PO DAILY [facility] Last Admin: 03/06/16 09:40 Dose: 1 tab Mupirocin (Bactroban 2% Ointment -) 1 applic TP BID [facility] Last Admin: 03/06/16 09:36 Dose: 1 applic Sevelamer Carbonate (Renvela Powder Packet -) 0.8 gm PO TIDCM [facility] Last Admin: 03/06/16 09:36 Dose: 0.8 gm A/P Shock - ?Hypovolemic vs Septic resolved Acute on Chronic Hypoxic Respiratory Failure improving COPD Throat Ca ESRD on HD Hyperkalemia resolved Metabolic Acidosis resolved Anemia Hypoglycemia - HD per renal - continue empiric antibiotics - f/u cultures - monitor fingersticks - enteral feeds - O2 to keep SpO2 >90% - BiPAP to assist in work of breathing - continue discussions regarding goals of care - DVT prophylaxis - can monitor on floor
[2016-03-06] MEDS: KCL 10 MEQ IVPB 100 ML IVPB SCH ×2 (12:10→12:11)
[2016-03-06] MEDS ORDERED: HEMOQUE TEST 1 EACH EACH ONE (14:32)
--- NOTE | 2016-03-06 15:29 | PN ---
Progress Note, Physician History of Present Illness: Pt seen and examined at bedside. She remains in the ICU. She is awake and able to answer questions. She remains on venti mask. - Current Medication List Current Medications: Active Medications Albuterol/Ipratropium (Duoneb -) 1 amp NEB Q4H PRN PRN Reason: SHORTNESS OF BREATH Last Admin: 03/06/16 11:18 Dose: 1 amp Arformoterol Tartrate (Brovana (Restricted To Pulmonology/Resp) -) 1 amp NEB BID [facility] Last Admin: 03/06/16 09:46 Dose: 1 amp Bacitracin (Bacitracin -) 1 applic TP BID [facility] Last Admin: 03/06/16 09:36 Dose: 1 applic Dextrose (D50w (Vial) -) 50 ml IVPUSH PRN PRN PRN Reason: hypoglycemia Stop: 03/07/16 01:00 Last Admin: 03/06/16 04:25 Dose: 50 ml Heparin Sodium (Porcine) (Heparin -) 5,000 unit SQ BID [facility] Last Admin: 03/06/16 09:37 Dose: 5,000 unit Piperacillin Sod/Tazobactam Sod (Zosyn 2.25gm Ivpb (Pre-Docked)) 50 mls @ 100 mls/hr IVPB Q8H-IV TAM Last Admin: 03/06/16 09:38 Dose: 100 mls/hr Multivitamins/Minerals/Vitamin C (Tab-A-Vit -) 1 tab PO DAILY [facility] Last Admin: 03/06/16 09:40 Dose: 1 tab Mupirocin (Bactroban 2% Ointment -) 1 applic TP BID [facility] Last Admin: 03/06/16 09:36 Dose: 1 applic Sevelamer Carbonate (Renvela Powder Packet -) 0.8 gm PO TIDCM [facility] Last Admin: 03/06/16 12:11 Dose: 0.8 gm - Objective Vital Signs: Vital Signs Temperature 97.4 F L 03/06/16 06:00 Pulse Rate 62 03/06/16 10:25 Respiratory Rate 20 03/06/16 10:00 Blood Pressure 145/85 03/06/16 10:00 O2 Sat by Pulse Oximetry (%) 95 03/05/16 21:00 Constitutional: Yes: Calm HENT: Yes: Other (skin hernandez) Cardiovascular: Yes: S1, S2 Respiratory: Yes: On Venti-Mask Gastrointestinal: Yes: Soft Musculoskeletal: Yes: Muscle Weakness Edema: No Neurological: Yes: Oriented Psychiatric: Yes: Oriented Labs: CBC, BMP 03/06/16 05:35 03/06/16 05:35 INR, PTT INR 1.24 (0.82-1.09) H 03/03/16 17:04 Assessment/Plan Current Medications Generic Name Dose Route Start Last Admin Trade Name Freq PRN Reason Stop Dose Admin Albuterol/Ipratropium 1 amp 03/04/16 16:47 03/06/16 11:18 Duoneb - NEB 1 amp Q4H PRN Administration SHORTNESS OF BREATH Arformoterol Tartrate 1 amp 03/04/16 22:00 03/06/16 09:46 Brovana (Restricted To Pulmonology/Resp) - NEB 1 amp BID TAM Administration Bacitracin 1 applic 03/05/16 11:00 03/06/16 09:36 Bacitracin - TP 1 applic BID TAM Administration Dextrose 50 ml 03/06/16 00:59 03/06/16 04:25 D50w (Vial) - IVPUSH 03/07/16 01:00 50 ml PRN PRN Administration hypoglycemia Heparin Sodium (Porcine) 5,000 unit 03/04/16 22:00 03/06/16 09:37 Heparin - SQ 5,000 unit BID TAM Administration Piperacillin Sod/Tazobactam Sod 50 mls @ 100 mls/hr 03/04/16 18:00 03/06/16 09: 38 Zosyn 2.25gm Ivpb (Pre-Docked) IVPB 100 mls/hr Q8H-IV TAM Administration Multivitamins/Minerals/Vitamin C 1 tab 03/05/16 10:00 03/06/16 09:40 Tab-A-Vit - PO 1 tab DAILY [facility]AM Administration Mupirocin 1 applic 03/04/16 22:00 03/06/16 09:36 Bactroban 2% Ointment - TP 1 applic BID [facility]AM Administration Sevelamer Carbonate 0.8 gm 03/05/16 12:00 03/06/16 12:11 Renvela Powder Packet - PO 0.8 gm TIDCM TAM Administration Impression 1. ESRD 2. dyspnea 3. COPD 4. throat cancer 5. respiratory failure requiring bipap 6. hyperkalemia 7. anemia 8. av graft malfunction Plan - cont with tube feeds - repeat labs in am - will evaluate for HD in am - will need vascular for thrombectomy - keep bp meds on hold - will use femoral for now - will follow Dr Pena
--- NOTE | 2016-03-06 16:27 | PN ---
Progress Note, Physician History of Present Illness: Awake,responsive No complaints No acute distress Afebrile WBC improved - Current Medication List Current Medications: Active Medications Albuterol/Ipratropium (Duoneb -) 1 amp NEB Q4H PRN PRN Reason: SHORTNESS OF BREATH Last Admin: 03/06/16 11:18 Dose: 1 amp Arformoterol Tartrate (Brovana (Restricted To Pulmonology/Resp) -) 1 amp NEB BID [facility] Last Admin: 03/06/16 09:46 Dose: 1 amp Bacitracin (Bacitracin -) 1 applic TP BID [facility] Last Admin: 03/06/16 09:36 Dose: 1 applic Dextrose (D50w (Vial) -) 50 ml IVPUSH PRN PRN PRN Reason: hypoglycemia Stop: 03/07/16 01:00 Last Admin: 03/06/16 04:25 Dose: 50 ml Heparin Sodium (Porcine) (Heparin -) 5,000 unit SQ BID [facility] Last Admin: 03/06/16 09:37 Dose: 5,000 unit Piperacillin Sod/Tazobactam Sod (Zosyn 2.25gm Ivpb (Pre-Docked)) 50 mls @ 100 mls/hr IVPB Q8H-IV [facility] Last Admin: 03/06/16 09:38 Dose: 100 mls/hr Multivitamins/Minerals/Vitamin C (Tab-A-Vit -) 1 tab PO DAILY [facility] Last Admin: 03/06/16 09:40 Dose: 1 tab Mupirocin (Bactroban 2% Ointment -) 1 applic TP BID [facility] Last Admin: 03/06/16 09:36 Dose: 1 applic Sevelamer Carbonate (Renvela Powder Packet -) 0.8 gm PO TIDCM [facility] Last Admin: 03/06/16 12:11 Dose: 0.8 gm - Objective Vital Signs: Vital Signs Temperature 97.4 F L 03/06/16 06:00 Pulse Rate 62 03/06/16 10:25 Respiratory Rate 20 03/06/16 10:00 Blood Pressure 145/85 03/06/16 10:00 O2 Sat by Pulse Oximetry (%) 98 03/06/16 16:13 Constitutional: Yes: No Distress, Cachectic Eyes: Yes: Conjunctiva Clear Cardiovascular: Yes: Regular Rate and Rhythm, S1, S2 Respiratory: Yes: CTA Bilaterally Gastrointestinal: Yes: Normal Bowel Sounds. No: Tenderness Edema: No Labs: CBC, BMP 03/06/16 05:35 03/06/16 05:35 INR, PTT INR 1.24 (0.82-1.09) H 03/03/16 17:04 Assessment/Plan Possible aspiration pneumonia Sepsis Leukocytosis- improved Head and neck ca Continue empiric zosyn
[2016-03-06] MEDS ORDERED: ALBUTEROL SO4 2.5/IPRATROPIUM 0.5 INH SOL 3 ML VIAL.NEB. NEB PRN (18:03)
[2016-03-06] MEDS ORDERED: DEXTROSE 50%-WATER 50 ML VIAL IVPUSH PRN (18:03)
[2016-03-07] MEDS: PIPERACILLIN/TAZOB 2.25 GM 50 ML IVPB SCH ×4 (02:14→18:18)
[2016-03-07 07:26] LABS: MCH 30.8 pg (25.7-33.7); MEAN CELL VOLUME 99.4 fl (80-96); MEAN PLT VOLUME 7.8 fl (7.5-11.1); PLATELET COUNT 172 K/MM3 (134-434); RDW 20.8 % (11.6-15.6); WHITE BLOOD COUNT 20.3 K/mm3 (4.0-10.0)
[2016-03-07 08:18] LABS: ALBUMIN 2.2 g/dl (3.4-5.0); BILIRUBIN,TOTAL 0.8 mg/dL (0.2-1.0); CREATININE 4.6 mg/dL (0.55-1.02); MAGNESIUM 1.8 mg/dL (1.8-2.4)
[2016-03-07 09:23] LABS: CALCIUM 6.2 mg/dL (8.5-10.1)
[2016-03-07] MEDS: ARFORMOTEROL TARTRATE 15 MCG/2 ML VIAL NEB SCH ×2 (10:02→21:57)
[2016-03-07 10:18] LABS: PLATELET ESTIMATE ADEQUATE (NORMAL); POLYCHROMASIA 1+
--- NOTE | 2016-03-07 10:20 | PN ---
Physical Exam: SUBJECTIVE: Patient seen and examined. Remains on BIPAP. Have asked nursing staff to switch over to 50% VM. OBJECTIVE: Vital Signs Period Temp Pulse Resp BP Sys/Morales Pulse Ox Last 24 Hr 97.1 F-98.8 F 62-76 16-20 121-153/70-80 94-98 Gen: frail appearing, cachetic female, on BIPAP. Appears comfortable Pulm: diminish/scattered rhonchi, no wheezing, RCW port CV: s1, s2 bradycardic no M/R/G Abd: +PEG intact, soft, NT Ext: no LE edema, thin, R femoral trialysis catheter Skin: multiple areas of ecchymosis, sacral ulcer with C/D/I Laboratory Results - last 24 hr 03/06/16 03/06/16 03/06/16 10:29 14:38 18:05 WBC RBC Hgb Hct MCV MCHC RDW Plt Count MPV Neutrophils % Lymphocytes % Monocytes % Band Neutrophils Differential Comment Platelet Estimate Polychromasia Macrocytosis Sodium Potassium Chloride Carbon Dioxide Anion Gap BUN Creatinine Creat Clearance w eGFR POC Glucometer [phone] 68 Random Glucose Calcium Phosphorus Magnesium Total Bilirubin AST ALT Alkaline Phosphatase Total Protein Albumin 03/06/16 03/07/16 03/07/16 22:08 00:14 05:10 WBC RBC Hgb Hct MCV MCHC RDW Plt Count MPV Neutrophils % Lymphocytes % Monocytes % Band Neutrophils Differential Comment Platelet Estimate Polychromasia Macrocytosis Sodium Potassium Chloride Carbon Dioxide Anion Gap BUN Creatinine Creat Clearance w eGFR POC Glucometer 61 102 73 Random Glucose Calcium Phosphorus Magnesium Total Bilirubin AST ALT Alkaline Phosphatase Total Protein Albumin 03/07/16 03/07/16 06:35 06:35 WBC 20.3 H RBC 2.76 L Hgb 8.5 L Hct 27.4 L MCV 99.4 H MCHC 31.0 L RDW 20.8 H Plt Count 172 MPV 7.8 Neutrophils % 90.0 H Lymphocytes % 1.0 L D Monocytes % 3.0 L Band Neutrophils 6.0 D Differential Comment Manual diff done Platelet Estimate Adequate Polychromasia 1+ Macrocytosis 3+ Sodium 144 Potassium 2.9 L* Chloride 104 Carbon Dioxide 23 Anion Gap 17 H BUN 67 H Creatinine 4.6 H D Creat Clearance w eGFR 9.62 POC Glucometer Random Glucose 97 Calcium 6.2 L* Phosphorus 6.0 H D Magnesium 1.8 Total Bilirubin 0.8 D AST 38 H D ALT 34 Alkaline Phosphatase 112 Total Protein 5.0 L Albumin 2.2 L Active Medications Generic Name Dose Route Start Last Admin Trade Name Freq PRN Reason Stop Dose Admin Albuterol/Ipratropium 1 amp 03/06/16 18:03 Duoneb - NEB Q4H PRN SHORTNESS OF BREATH Arformoterol Tartrate 1 amp 03/06/16 22:00 03/07/16 10:02 Brovana (Restricted To Pulmonology/Resp) - NEB 1 amp BID [facility] Administration Bacitracin 1 applic 03/06/16 22:00 03/06/16 21:22 Bacitracin - TP 1 applic BID [facility]AM Administration Heparin Sodium (Porcine) 5,000 unit 03/06/16 22:00 03/06/16 21:19 Heparin - SQ 5,000 unit BID [facility]AM Administration Piperacillin Sod/Tazobactam Sod 50 mls @ 100 mls/hr 03/07/16 02:00 03/07/16 02: 14 Zosyn 2.25gm Ivpb (Pre-Docked) IVPB 100 mls/hr Q8H-IV [facility]AM Administration Potassium Chloride 40 meq/ 1,020 mls @ 75 mls/hr 03/07/16 10:30 Dextrose IVPB Q13H TAM Potassium Chloride 100 mls @ 100 mls/hr 03/07/16 10:00 Potassium Chloride 10 Meq Premix Ivpb - IVPB 03/07/16 12:59 Q60M TAM Multivitamins/Minerals/Vitamin C 1 tab 03/07/16 10:00 Tab-A-Vit - PO DAILY TAM Sevelamer Carbonate 0.8 gm 03/07/16 08:00 Renvela Powder Packet - PO TIDCM TAM ASSESSMENT/PLAN: 65 year old female ESRD on HD (/) throat CA (diagnosed 3-4 months ago received chemo/radiation), anemia admitted for AMS and worsening SOB, failure to thrive. Plan: 1. Acute on chronic hypoxic resp failure -improving. Transferred out of ICU on 03/06 -on BIPAP at night/VM during daytime - Cont brovana - Cont duonebs 2. Aspiration pna - CXR shows left side infiltrate resolving, leukocytosis stable but still elevated - Cont zosyn - ID following -nodular density seen on right side, for now will treat infiltrate. Pt recently out of ICU and will monitor resp status as CT scan is not emergent for treatment 3. ESRD TTS -HD per nephro 4. Electrolyte abnormalities - Cont renvela, powder formulation for GT -also with hypokalemia - repleted in IVF and additional supplements -have asked dietary to re-eval as nutritional needs do not seem to be adequate. Continues to have hypoglyemic episodes - started D5 with K supplement. Perhaps other PEG feed would be better suited - currently on nepro 5. Throat cancer - Unable to swallow d/t pain - s/p chemo 8 weeks ago 6. Facial abrasions - Bacitracin bid 7. Stage 2 pressure ulcer - C/D/I CODE STATUS: DNR/DNI Visit type - Emergency Visit Emergency Visit: Yes ED Registration Date: 03/03/16 Care time: The patient presented to the Emergency Department on the above date and was hospitalized for further evaluation of their emergent condition. - New Patient This patient is new to me today: No - Critical Care Critical Care patient: No
[2016-03-07] MEDS: SEVELAMER CARBONATE 0.8 GM POWDER PACKET PO SCH ×4 (10:25→18:12)
[2016-03-07] MEDS: MULTIVITAMINS (DAILY MVI) TABLET (FP) PO SCH (10:27)
[2016-03-07] MEDS: HEPARIN NA (PORCINE) 5,000 UNITS/ML 1ML VIAL SQ SCH ×2 (10:27→21:02)
[2016-03-07] MEDS: BACITRACIN 30 GM TUBE TOPICAL OINTMENT TP SCH ×2 (10:27→21:02)
[2016-03-07] MEDS ORDERED: POTASSIUM CHLORIDE 40 MEQ in DEXTROSE 5%-WATER - 1,000 ML IVPB SCH (10:30)
[2016-03-07] MEDS: KCL 10 MEQ IVPB 100 ML IVPB SCH ×2 (10:58→13:00)
--- NOTE | 2016-03-07 11:19 | PN ---
Progress Note, Physician History of Present Illness: No focal complaint Chronically ill appearing Afebrile WBC remains elevated - Current Medication List Current Medications: Active Medications Albuterol/Ipratropium (Duoneb -) 1 amp NEB Q4H PRN PRN Reason: SHORTNESS OF BREATH Arformoterol Tartrate (Brovana (Restricted To Pulmonology/Resp) -) 1 amp NEB BID [facility] Last Admin: 03/07/16 10:02 Dose: 1 amp Bacitracin (Bacitracin -) 1 applic TP BID [facility] Last Admin: 03/07/16 10:27 Dose: 1 applic Heparin Sodium (Porcine) (Heparin -) 5,000 unit SQ BID [facility] Last Admin: 03/07/16 10:27 Dose: 5,000 unit Piperacillin Sod/Tazobactam Sod (Zosyn 2.25gm Ivpb (Pre-Docked)) 50 mls @ 100 mls/hr IVPB Q8H-IV [facility] Last Admin: 03/07/16 10:26 Dose: 100 mls/hr Potassium Chloride 40 meq/ (Dextrose) 1,020 mls @ 75 mls/hr IVPB Q13H TAM Potassium Chloride (Potassium Chloride 10 Meq Premix Ivpb -) 100 mls @ 100 mls/ hr IVPB Q60M [facility] Stop: 03/07/16 12:59 Last Admin: 03/07/16 10:58 Dose: 100 mls/hr Multivitamins/Minerals/Vitamin C (Tab-A-Vit -) 1 tab PO DAILY [facility] Last Admin: 03/07/16 10:27 Dose: 1 tab Sevelamer Carbonate (Renvela Powder Packet -) 0.8 gm PO TIDCM [facility] Last Admin: 03/07/16 10:27 Dose: 0.8 gm - Objective Vital Signs: Vital Signs Temperature 97.1 F L 03/07/16 09:56 Pulse Rate 74 03/07/16 09:56 Respiratory Rate 20 03/07/16 09:56 Blood Pressure 121/76 03/07/16 09:56 O2 Sat by Pulse Oximetry (%) 95 03/07/16 06:00 Constitutional: Yes: No Distress, Cachectic Cardiovascular: Yes: Regular Rate and Rhythm, S1, S2 Respiratory: Yes: Rhonchi Gastrointestinal: Yes: Normal Bowel Sounds, Soft. No: Tenderness Edema: No Labs: CBC, BMP 03/07/16 06:35 03/07/16 06:35 INR, PTT INR 1.24 (0.82-1.09) H 03/03/16 17:04 Assessment/Plan Possible aspiration pneumonia Sepsis Leukocytosis- Head and neck ca Continue empiric zosyn Prognosis poor
--- NOTE | 2016-03-07 11:45 | PN ---
Progress Note, Physician History of Present Illness: PULMONARY ALERT,COMFORTABLE,NAD ON O2 VIA VM - Current Medication List Current Medications: Active Medications Albuterol/Ipratropium (Duoneb -) 1 amp NEB Q4H PRN PRN Reason: SHORTNESS OF BREATH Arformoterol Tartrate (Brovana (Restricted To Pulmonology/Resp) -) 1 amp NEB BID [facility] Last Admin: 03/07/16 10:02 Dose: 1 amp Bacitracin (Bacitracin -) 1 applic TP BID [facility] Last Admin: 03/07/16 10:27 Dose: 1 applic Heparin Sodium (Porcine) (Heparin -) 5,000 unit SQ BID [facility] Last Admin: 03/07/16 10:27 Dose: 5,000 unit Piperacillin Sod/Tazobactam Sod (Zosyn 2.25gm Ivpb (Pre-Docked)) 50 mls @ 100 mls/hr IVPB Q8H-IV [facility] Last Admin: 03/07/16 10:26 Dose: 100 mls/hr Potassium Chloride 40 meq/ (Dextrose) 1,020 mls @ 75 mls/hr IVPB Q13H TAM Potassium Chloride (Potassium Chloride 10 Meq Premix Ivpb -) 100 mls @ 100 mls/ hr IVPB Q60M [facility] Stop: 03/07/16 12:59 Last Admin: 03/07/16 10:58 Dose: 100 mls/hr Multivitamins/Minerals/Vitamin C (Tab-A-Vit -) 1 tab PO DAILY [facility] Last Admin: 03/07/16 10:27 Dose: 1 tab Sevelamer Carbonate (Renvela Powder Packet -) 0.8 gm PO TIDCM [facility] Last Admin: 03/07/16 10:27 Dose: 0.8 gm - Objective Vital Signs: Vital Signs Temperature 97.1 F L 03/07/16 09:56 Pulse Rate 81 03/07/16 11:05 Respiratory Rate 20 03/07/16 09:56 Blood Pressure 121/76 03/07/16 09:56 O2 Sat by Pulse Oximetry (%) 100 03/07/16 11:05 Constitutional: Yes: Cachectic, Thin HENT: Yes: Other ([place]) Neck: Yes: Supple Cardiovascular: Yes: Regular Rate and Rhythm, S1, S2 Respiratory: Yes: Diminished Gastrointestinal: Yes: Normal Bowel Sounds, Soft Extremities: Yes: WNL Edema: No Labs: CBC, BMP 03/07/16 06:35 03/07/16 06:35 INR, PTT INR 1.24 (0.82-1.09) H 03/03/16 17:04 Problem List - Problems (1) COPD (chronic obstructive pulmonary disease) case management patient Code(s): MBG3775 - (2) Leukocytosis Code(s): D72.829 - ELEVATED WHITE BLOOD CELL COUNT, UNSPECIFIED Qualifiers: Leukocytosis type: unspecified Qualified Code(s): D72.829 - Elevated white blood cell count, unspecified (3) ESRD (end stage renal disease) Code(s): N18.6 - END STAGE RENAL DISEASE (4) Acute respiratory failure with hypoxemia Code(s): J96.01 - ACUTE RESPIRATORY FAILURE WITH HYPOXIA (5) COPD exacerbation Code(s): J44.1 - CHRONIC OBSTRUCTIVE PULMONARY DISEASE W (ACUTE) EXACERBATION (6) Pneumonia Code(s): J18.9 - PNEUMONIA, UNSPECIFIED ORGANISM Qualifiers: Pneumonia type: due to unspecified organism Laterality: right Lung location: unspecified part of lung Qualified Code(s): J18.9 - Pneumonia, unspecified organism (7) Renal failure Code(s): N19 - UNSPECIFIED KIDNEY FAILURE (8) Smoker Code(s): F17.200 - NICOTINE DEPENDENCE, UNSPECIFIED, UNCOMPLICATED (9) Tobacco dependence Code(s): F17.200 - NICOTINE DEPENDENCE, UNSPECIFIED, UNCOMPLICATED (10) Anemia, chronic renal failure Code(s): N18.9 - CHRONIC KIDNEY DISEASE, UNSPECIFIED D63.1 - ANEMIA IN CHRONIC KIDNEY DISEASE Qualifiers: Chronic kidney disease stage: stage 4 (severe) Qualified Code(s): N18.4 - Chronic kidney disease, stage 4 (severe); D63.1 - Anemia in chronic kidney disease (11) Acute on chronic respiratory failure with hypoxia and hypercapnia Code(s): J96.21 - ACUTE AND CHRONIC RESPIRATORY FAILURE WITH HYPOXIA J96.22 - ACUTE AND CHRONIC RESPIRATORY FAILURE WITH HYPERCAPNIA Assessment/Plan A/P Shock - ?Hypovolemic vs Septic resolved Acute on Chronic Hypoxic Respiratory Failure improving COPD Throat Ca ESRD on HD Hyperkalemia resolved Metabolic Acidosis resolved Anemia Hypoglycemia - HD per renal - continue empiric antibiotics - enteral feeds - O2 to keep SpO2 >90% - BiPAP PRN to assist in work of breathing - DVT prophylaxis DR PARADA
[2016-03-07] MEDS ORDERED: DEXTROSE 5%-WATER - 1,000 ML IV SCH (13:30)
[2016-03-07] MEDS ORDERED: POTASSIUM CHLORIDE 40 MEQ/30 ML UNIT DOSE CUP GT ONE (13:30)
[2016-03-07] MEDS: ACETAMINOPHEN 325 MG TABLET (FP) PO PRN (14:43)
[2016-03-07] MEDS: LABETALOL HCL 200 MG TABLET (FP) PO SCH (15:09)
--- NOTE | 2016-03-07 16:25 | PN ---
Progress Note, Physician History of Present Illness: Pt seen and examined at bedside. She is awake. She denies chest pain. - Current Medication List Current Medications: Active Medications Acetaminophen (Tylenol -) 650 mg PO Q6H PRN PRN Reason: FEVER OR PAIN Last Admin: 03/07/16 14:43 Dose: 650 mg Albuterol/Ipratropium (Duoneb -) 1 amp NEB Q4H PRN PRN Reason: SHORTNESS OF BREATH Arformoterol Tartrate (Brovana (Restricted To Pulmonology/Resp) -) 1 amp NEB BID [facility] Last Admin: 03/07/16 10:02 Dose: 1 amp Bacitracin (Bacitracin -) 1 applic TP BID [facility] Last Admin: 03/07/16 10:27 Dose: 1 applic Heparin Sodium (Porcine) (Heparin -) 5,000 unit SQ BID [facility] Last Admin: 03/07/16 10:27 Dose: 5,000 unit Piperacillin Sod/Tazobactam Sod (Zosyn 2.25gm Ivpb (Pre-Docked)) 50 mls @ 100 mls/hr IVPB Q8H-IV [facility] Last Admin: 03/07/16 10:26 Dose: 100 mls/hr Dextrose (D5w -) 1,000 mls @ 30 mls/hr IV ASDIR [facility] Last Admin: 03/07/16 14:43 Dose: 30 mls/hr Multivitamins/Minerals/Vitamin C (Tab-A-Vit -) 1 tab PO DAILY [facility] Last Admin: 03/07/16 10:27 Dose: 1 tab Sevelamer Carbonate (Renvela Powder Packet -) 0.8 gm PO TIDCM [facility] Last Admin: 03/07/16 13:01 Dose: 0.8 gm - Objective Vital Signs: Vital Signs Temperature 98.9 F 03/07/16 15:17 Pulse Rate 64 03/07/16 15:17 Respiratory Rate 20 03/07/16 15:17 Blood Pressure 128/79 03/07/16 15:17 O2 Sat by Pulse Oximetry (%) 100 03/07/16 11:05 Constitutional: Yes: Calm, Cachectic Eyes: Yes: Conjunctiva Clear HENT: Yes: Atraumatic Cardiovascular: Yes: S1, S2 Respiratory: Yes: On Venti-Mask Gastrointestinal: Yes: Soft Genitourinary: Yes: WNL Musculoskeletal: Yes: Muscle Weakness Edema: No Neurological: Yes: Oriented Psychiatric: Yes: Oriented Labs: CBC, BMP 03/07/16 06:35 03/07/16 06:35 INR, PTT INR 1.24 (0.82-1.09) H 03/03/16 17:04 Problem List - Problems (1) COPD (chronic obstructive pulmonary disease) case management patient Code(s): MWK1567 - (2) Hypoglycemia Code(s): E16.2 - HYPOGLYCEMIA, UNSPECIFIED (3) ESRD (end stage renal disease) Code(s): N18.6 - END STAGE RENAL DISEASE (4) Tobacco dependence Code(s): F17.200 - NICOTINE DEPENDENCE, UNSPECIFIED, UNCOMPLICATED (5) Anemia, chronic renal failure Code(s): N18.9 - CHRONIC KIDNEY DISEASE, UNSPECIFIED D63.1 - ANEMIA IN CHRONIC KIDNEY DISEASE Qualifiers: Chronic kidney disease stage: stage 4 (severe) Qualified Code(s): N18.4 - Chronic kidney disease, stage 4 (severe); D63.1 - Anemia in chronic kidney disease Assessment/Plan Current Medications Generic Name Dose Route Start Last Admin Trade Name Freq PRN Reason Stop Dose Admin Acetaminophen 650 mg 03/07/16 13:14 03/07/16 14:43 Tylenol - PO 650 mg Q6H PRN Administration FEVER OR PAIN Albuterol/Ipratropium 1 amp 03/06/16 18:03 Duoneb - NEB Q4H PRN SHORTNESS OF BREATH Arformoterol Tartrate 1 amp 03/06/16 22:00 03/07/16 10:02 Brovana (Restricted To Pulmonology/Resp) - NEB 1 amp BID [facility] Administration Bacitracin 1 applic 03/06/16 22:00 03/07/16 10:27 Bacitracin - TP 1 applic BID [facility] Administration Heparin Sodium (Porcine) 5,000 unit 03/06/16 22:00 03/07/16 10:27 Heparin - SQ 5,000 unit BID [facility] Administration Piperacillin Sod/Tazobactam Sod 50 mls @ 100 mls/hr 03/07/16 02:00 03/07/16 10: 26 Zosyn 2.25gm Ivpb (Pre-Docked) IVPB 100 mls/hr Q8H-IV [facility] Administration Dextrose 1,000 mls @ 30 mls/hr 03/07/16 13:30 03/07/16 14:43 D5w - IV 30 mls/hr ASDIR TAM Administration Multivitamins/Minerals/Vitamin C 1 tab 03/07/16 10:00 03/07/16 10:27 Tab-A-Vit - PO 1 tab DAILY [facility]AM Administration Sevelamer Carbonate 0.8 gm 03/07/16 08:00 03/07/16 13:01 Renvela Powder Packet - PO 0.8 gm TIDCM [facility]AM Administration Impression 1. ESRD 2. dyspnea 3. COPD 4. throat cancer 5. respiratory failure requiring bipap 6. hyperkalemia 7. anemia 8. av graft malfunction Plan - increase tube feeds, discussed with dietary - monitor blood sugar - pt received one k rider already, give PO potassium - repeat labs - no HD today, will evaluate in am - monitor blood pressure - vascular follow up for thrombectomy - will use femoral for now - will follow Dr Pena
[2016-03-07] MEDS: CALCIUM 500MG/VIT-D 200 UNITS COMBO TABLET (FP) PO SCH (18:12)
[2016-03-07 18:18] LABS: CREATININE 4.8 mg/dL (0.55-1.02)
[2016-03-07 18:33] LABS: CALCIUM 6.3 mg/dL (8.5-10.1)
[2016-03-08] MEDS: PIPERACILLIN/TAZOB 2.25 GM 50 ML IVPB SCH ×3 (02:18→18:00)
[2016-03-08] MEDS ORDERED: ONDANSETRON 4 MG/2 ML VIAL IVPB ONE (03:25)
--- NOTE | 2016-03-08 04:29 | HOSP ---
Subjective - Review of Symptoms Events since last encounter: called by RN who reported pt with c/o nausea. Subjective: pt with c/o nausea earlier but now improved. Denies abdominal pain. Gastrointestinal: Yes: Nausea. No: Vomiting, Abdominal Pain Physical Examination Vital Signs: Vital Signs Temperature 98.5 F 03/07/16 22:00 Pulse Rate 79 03/07/16 22:00 Respiratory Rate 18 03/07/16 22:00 Blood Pressure 147/77 03/07/16 22:00 O2 Sat by Pulse Oximetry (%) 100 03/08/16 02:59 Constitutional: Yes: Calm Cardiovascular: Yes: Regular Rate and Rhythm Respiratory: Yes: CTA Bilaterally Gastrointestinal: Yes: Normal Bowel Sounds, Soft. No: Tenderness Labs: CBC, BMP 03/07/16 06:35 03/07/16 17:11 Hospitalist Encounter Assessment: Nausea, on tube feed - tube feeding held, zofran given, pt had BM and is now feeling much better. Will resume tube feed at 40cc/hr
[2016-03-08 07:27] LABS: BASOPHIL 0.6 % (0-2.0); EOSINOPHIL 0.4 % (0-4.5); MCH 29.5 pg (25.7-33.7); MEAN CELL VOLUME 105.3 fl (80-96); MEAN PLT VOLUME 8.9 fl (7.5-11.1); NEUTROPHILS 93.5 % (42.8-82.8); PLATELET COUNT 140 K/MM3 (134-434); WHITE BLOOD COUNT 14.7 K/mm3 (4.0-10.0)
[2016-03-08 07:31] LABS: MAGNESIUM 1.6 mg/dL (1.8-2.4)
[2016-03-08 07:33] LABS: CREATININE 4.6 mg/dL (0.55-1.02)
[2016-03-08 07:55] LABS: CALCIUM 5.8 mg/dL (8.5-10.1)
[2016-03-08] MEDS: KCL 10 MEQ IVPB 100 ML IVPB SCH (08:15)
[2016-03-08] MEDS ORDERED: MAGNESIUM SULF 50% (8.12 MEQ/2 ML-1 GM VIAL) IVPB ONE (08:30)
[2016-03-08] MEDS ORDERED: PT OWN MED DRAWER 7, Y5N ONE (08:40)
[2016-03-08] MEDS: SEVELAMER CARBONATE 0.8 GM POWDER PACKET PO SCH ×3 (08:49→17:30)
[2016-03-08] MEDS: ARFORMOTEROL TARTRATE 15 MCG/2 ML VIAL NEB SCH ×2 (09:32→22:52)
[2016-03-08] MEDS: CALCIUM 500MG/VIT-D 200 UNITS COMBO TABLET (FP) PO SCH (10:25)
[2016-03-08] MEDS: HEPARIN NA (PORCINE) 5,000 UNITS/ML 1ML VIAL SQ SCH (10:26)
[2016-03-08] MEDS: MULTIVITAMINS (DAILY MVI) TABLET (FP) PO SCH ×2 (10:50→13:17)
[2016-03-08] MEDS ORDERED: POTASSIUM CHLORIDE 40 MEQ/30 ML UNIT DOSE CUP PEG STA (11:07)
--- NOTE | 2016-03-08 11:51 | PN ---
Progress Note, Physician History of Present Illness: pulmonary awake,very weak on o2 via vm,-resp distress - Current Medication List Current Medications: Active Medications Acetaminophen (Tylenol -) 650 mg PO Q6H PRN PRN Reason: FEVER OR PAIN Last Admin: 03/07/16 14:43 Dose: 650 mg Albuterol/Ipratropium (Duoneb -) 1 amp NEB Q4H PRN PRN Reason: SHORTNESS OF BREATH Last Admin: 03/08/16 04:44 Dose: 1 amp Arformoterol Tartrate (Brovana (Restricted To Pulmonology/Resp) -) 1 amp NEB BID [facility] Last Admin: 03/08/16 09:32 Dose: 1 amp Bacitracin (Bacitracin -) 1 applic TP BID [facility] Last Admin: 03/07/16 21:02 Dose: 1 applic Calcium Carbonate/Cholecalciferol (Os-Guille 500+D -) 2 tab PO DAILY [facility] Last Admin: 03/08/16 10:25 Dose: 2 tab Heparin Sodium (Porcine) (Heparin -) 5,000 unit SQ BID [facility] Last Admin: 03/08/16 10:26 Dose: 5,000 unit Piperacillin Sod/Tazobactam Sod (Zosyn 2.25gm Ivpb (Pre-Docked)) 50 mls @ 100 mls/hr IVPB Q8H-IV [facility] Last Admin: 03/08/16 10:35 Dose: 100 mls/hr Multivitamins/Minerals/Vitamin C (Tab-A-Vit -) 1 tab PO DAILY [facility] Last Admin: 03/08/16 10:50 Dose: 1 tab Sevelamer Carbonate (Renvela Powder Packet -) 0.8 gm PO TIDCM [facility] Last Admin: 03/08/16 08:49 Dose: 0.8 gm - Objective Vital Signs: Vital Signs Temperature 98.4 F 03/08/16 10:05 Pulse Rate 78 03/08/16 10:05 Respiratory Rate 24 03/08/16 10:05 Blood Pressure 158/80 03/08/16 10:05 O2 Sat by Pulse Oximetry (%) 98 03/08/16 09:28 Constitutional: Yes: Calm, Cachectic Eyes: Yes: WNL HENT: Yes: WNL Neck: Yes: WNL Cardiovascular: Yes: Regular Rate and Rhythm, S1, S2 Respiratory: Yes: Diminished Gastrointestinal: Yes: Normal Bowel Sounds, Soft Extremities: Yes: WNL Edema: No Labs: CBC, BMP 03/08/16 05:55 03/08/16 05:55 INR, PTT INR 1.24 (0.82-1.09) H 03/03/16 17:04 Problem List - Problems (1) COPD (chronic obstructive pulmonary disease) case management patient Code(s): [id number] - (2) Leukocytosis Code(s): D72.829 - ELEVATED WHITE BLOOD CELL COUNT, UNSPECIFIED Qualifiers: Leukocytosis type: unspecified Qualified Code(s): D72.829 - Elevated white blood cell count, unspecified (3) ESRD (end stage renal disease) Code(s): N18.6 - END STAGE RENAL DISEASE (4) Acute respiratory failure with hypoxemia Code(s): J96.01 - ACUTE RESPIRATORY FAILURE WITH HYPOXIA (5) COPD exacerbation Code(s): J44.1 - CHRONIC OBSTRUCTIVE PULMONARY DISEASE W (ACUTE) EXACERBATION (6) Pneumonia Code(s): J18.9 - PNEUMONIA, UNSPECIFIED ORGANISM Qualifiers: Pneumonia type: due to unspecified organism Laterality: right Lung location: unspecified part of lung Qualified Code(s): J18.9 - Pneumonia, unspecified organism (7) Renal failure Code(s): N19 - UNSPECIFIED KIDNEY FAILURE (8) Smoker Code(s): F17.200 - NICOTINE DEPENDENCE, UNSPECIFIED, UNCOMPLICATED (9) Tobacco dependence Code(s): F17.200 - NICOTINE DEPENDENCE, UNSPECIFIED, UNCOMPLICATED (10) Anemia, chronic renal failure Code(s): N18.9 - CHRONIC KIDNEY DISEASE, UNSPECIFIED D63.1 - ANEMIA IN CHRONIC KIDNEY DISEASE Qualifiers: Chronic kidney disease stage: stage 4 (severe) Qualified Code(s): N18.4 - Chronic kidney disease, stage 4 (severe); D63.1 - Anemia in chronic kidney disease (11) Acute on chronic respiratory failure with hypoxia and hypercapnia Code(s): J96.21 - ACUTE AND CHRONIC RESPIRATORY FAILURE WITH HYPOXIA J96.22 - ACUTE AND CHRONIC RESPIRATORY FAILURE WITH HYPERCAPNIA Assessment/Plan A/P Shock - ?Hypovolemic vs Septic resolved Acute on Chronic Hypoxic Respiratory Failure improving COPD Throat Ca ESRD on HD Hyperkalemia resolved Metabolic Acidosis resolved Anemia Hypoglycemia - HD per renal - continue empiric antibiotics - enteral feeds - O2 to keep SpO2 >90% - BiPAP PRN to assist in work of breathing - DVT prophylaxis - replete lytes,monitor na - conservative management DR PARADA
[2016-03-08] MEDS ORDERED: EPOETIN ALFA 2,000 UNITS/1 ML VIAL IVPUSH ONE (11:57)
--- NOTE | 2016-03-08 11:57 | PN ---
Progress Note, Physician History of Present Illness: Pt seen and examined at bedside. She is much more awake and alert today. - Current Medication List Current Medications: Active Medications Acetaminophen (Tylenol -) 650 mg PO Q6H PRN PRN Reason: FEVER OR PAIN Last Admin: 03/07/16 14:43 Dose: 650 mg Albuterol/Ipratropium (Duoneb -) 1 amp NEB Q4H PRN PRN Reason: SHORTNESS OF BREATH Last Admin: 03/08/16 04:44 Dose: 1 amp Arformoterol Tartrate (Brovana (Restricted To Pulmonology/Resp) -) 1 amp NEB BID [facility] Last Admin: 03/08/16 09:32 Dose: 1 amp Bacitracin (Bacitracin -) 1 applic TP BID [facility] Last Admin: 03/07/16 21:02 Dose: 1 applic Calcium Carbonate/Cholecalciferol (Os-Guille 500+D -) 2 tab PO DAILY [facility] Last Admin: 03/08/16 10:25 Dose: 2 tab Heparin Sodium (Porcine) (Heparin -) 5,000 unit SQ BID [facility] Last Admin: 03/08/16 10:26 Dose: 5,000 unit Piperacillin Sod/Tazobactam Sod (Zosyn 2.25gm Ivpb (Pre-Docked)) 50 mls @ 100 mls/hr IVPB Q8H-IV [facility] Last Admin: 03/08/16 10:35 Dose: 100 mls/hr Multivitamins/Minerals/Vitamin C (Tab-A-Vit -) 1 tab PO DAILY [facility] Last Admin: 03/08/16 10:50 Dose: 1 tab Sevelamer Carbonate (Renvela Powder Packet -) 0.8 gm PO TIDCM [facility] Last Admin: 03/08/16 08:49 Dose: 0.8 gm - Objective Vital Signs: Vital Signs Temperature 98.4 F 03/08/16 10:05 Pulse Rate 78 03/08/16 10:05 Respiratory Rate 24 03/08/16 10:05 Blood Pressure 158/80 03/08/16 10:05 O2 Sat by Pulse Oximetry (%) 98 03/08/16 09:28 Constitutional: Yes: Calm, Cachectic Eyes: Yes: Conjunctiva Clear HENT: Yes: Atraumatic Neck: Yes: Supple Cardiovascular: Yes: S1, S2 Respiratory: Yes: On Venti-Mask Gastrointestinal: Yes: Soft, Other (peg) Genitourinary: Yes: WNL Musculoskeletal: Yes: Muscle Weakness Edema: No Neurological: Yes: Oriented Psychiatric: Yes: Oriented Labs: CBC, BMP 03/08/16 05:55 03/08/16 05:55 INR, PTT INR 1.24 (0.82-1.09) H 03/03/16 17:04 Problem List - Problems (1) COPD (chronic obstructive pulmonary disease) case management patient Code(s): AIP1016 - (2) Hypoglycemia Code(s): E16.2 - HYPOGLYCEMIA, UNSPECIFIED (3) ESRD (end stage renal disease) Code(s): N18.6 - END STAGE RENAL DISEASE (4) Tobacco dependence Code(s): F17.200 - NICOTINE DEPENDENCE, UNSPECIFIED, UNCOMPLICATED (5) Anemia, chronic renal failure Code(s): N18.9 - CHRONIC KIDNEY DISEASE, UNSPECIFIED D63.1 - ANEMIA IN CHRONIC KIDNEY DISEASE Qualifiers: Chronic kidney disease stage: stage 4 (severe) Qualified Code(s): N18.4 - Chronic kidney disease, stage 4 (severe); D63.1 - Anemia in chronic kidney disease Assessment/Plan Current Medications Generic Name Dose Route Start Last Admin Trade Name Freq PRN Reason Stop Dose Admin Acetaminophen 650 mg 03/07/16 13:14 03/07/16 14:43 Tylenol - PO 650 mg Q6H PRN Administration FEVER OR PAIN Albuterol/Ipratropium 1 amp 03/06/16 18:03 03/08/16 04:44 Duoneb - NEB 1 amp Q4H PRN Administration SHORTNESS OF BREATH Arformoterol Tartrate 1 amp 03/06/16 22:00 03/08/16 09:32 Brovana (Restricted To Pulmonology/Resp) - NEB 1 amp BID TAM Administration Bacitracin 1 applic 03/06/16 22:00 03/07/16 21:02 Bacitracin - TP 1 applic BID TAM Administration Calcium Carbonate/Cholecalciferol 2 tab 03/07/16 16:30 03/08/16 10:25 Os-Guille 500+D - PO 2 tab DAILY TAM Administration Heparin Sodium (Porcine) 5,000 unit 03/06/16 22:00 03/08/16 10:26 Heparin - SQ 5,000 unit BID TAM Administration Piperacillin Sod/Tazobactam Sod 50 mls @ 100 mls/hr 03/07/16 02:00 03/08/16 10: 35 Zosyn 2.25gm Ivpb (Pre-Docked) IVPB 100 mls/hr Q8H-IV TAM Administration Multivitamins/Minerals/Vitamin C 1 tab 03/07/16 10:00 03/08/16 10:50 Tab-A-Vit - PO 1 tab DAILY TAM Administration Sevelamer Carbonate 0.8 gm 03/07/16 08:00 03/08/16 08:49 Renvela Powder Packet - PO 0.8 gm TIDCM TAM Administration Impression 1. ESRD 2. dyspnea 3. COPD 4. throat cancer 5. respiratory failure requiring bipap 6. hyperkalemia 7. anemia 8. av graft malfunction Plan - will arrange for HD today - remove femoral catheter after dialysis - molly 40 meq kcl via peg now - will use 3 k bath on HD - will order post hd bmp - replace mag - called vascular surgery, possible thrombecomy tomorrow - cont tube feeds, dietary on board - will follow Dr Pena
--- NOTE | 2016-03-08 12:54 | PN ---
[id number] via right groin trialysis catheter. Vital Signs Period Temp Pulse Resp BP Sys/Morales Pulse Ox Last 24 Hr 97.4 F-98.9 F 64-79 16-24 128-158/54-81 98-100 PE: GEN: cacathetic appearing LUE: no palpable thrill. Right groin: catheter inplace, no hematoma/ecchymosis noted. CBC, BMP 03/08/16 05:55 03/08/16 05:55 INR, PTT INR 1.24 (0.82-1.09) H 03/03/16 17:04 <Sandrita Hicks - Last Filed: 03/08/16 13:02> - Note Progress Note: Patient offered graft thrombectomy which was scheduled for 03/09. I was informed that family refused to allow procedure to be done. <Jenaro Simpson - Last Filed: 03/09/16 20:03> Problem List - Problems (1) ESRD (end stage renal disease) Assessment/Plan: Pt with HTN, throat CA and ESRD on HD presented to the Er with SOB and now a clotted Left upper extremity graft. She is being dialyzed via a right groin trialysis cathter and plan is for clot removal tomorrow. NPO after midnight Please clear patient medically for her procedure, Bi pap at night an VM during the day. being treated for aspiration pneumonia She will received PRBC with HD today. Code(s): N18.6 - END STAGE RENAL DISEASE <Sandrita Hicks - Last Filed: 03/08/16 13:02>
[2016-03-08] MEDS ORDERED: ONDANSETRON 4 MG/2 ML VIAL IVPB PRN (13:09)
[2016-03-08] MEDS: BACITRACIN 30 GM TUBE TOPICAL OINTMENT TP SCH (13:30)
[2016-03-08] MEDS: ALBUMIN HUMAN 25% 100 ML VIAL IVPB SCH ×4 (14:00→15:30)
[2016-03-08] MEDS ORDERED: EPOETIN ALFA 3,000 UNIT, EPOETIN ALFA 2,000 UNIT IVPUSH ONE (14:00)
[2016-03-08] MEDS ORDERED: KCL 10 MEQ IVPB 100 ML IVPB ONE (14:30)
--- NOTE | 2016-03-08 17:27 | PN ---
Physical Exam: SUBJECTIVE: Patient seen and examined. went for HD today, 2 units pRBC transfused OBJECTIVE: Vital Signs Period Temp Pulse Resp BP Sys/Morales Pulse Ox Last 24 Hr 97.4 F-98.5 F 73-79 16-24 135-166/54-89 98-100 Gen: frail appearing, cachetic female, on VM, Appears comfortable Pulm: scattered rhonchi, no wheezing, RCW port CV: s1, s2 bradycardic no M/R/G Abd: +PEG intact, soft, NT Ext: no LE edema, thin, R femoral trialysis catheter Skin: multiple areas of ecchymosis, sacral ulcer with C/D/I Laboratory Results - last 24 hr 03/07/16 03/07/16 03/08/16 17:11 17:26 02:21 WBC RBC Hgb Hct MCV MCHC RDW Plt Count MPV Neutrophils % Lymphocytes % Monocytes % Eosinophils % Basophils % Sodium 144 Potassium 3.5 D Chloride 104 Carbon Dioxide 20 L Anion Gap 20 H BUN 71 H Creatinine 4.8 H POC Glucometer 131 99 Random Glucose 113 H Calcium 6.3 L* Magnesium Blood Type Antibody Screen Crossmatch 03/08/16 03/08/16 03/08/16 05:55 05:55 06:39 WBC 14.7 H RBC 2.36 L Hgb 7.0 L D Hct 24.9 L MCV 105.3 H MCHC 28.0 L RDW 22.0 H Plt Count 140 MPV 8.9 D Neutrophils % 93.5 H Lymphocytes % 2.2 L D Monocytes % 3.3 L Eosinophils % 0.4 D Basophils % 0.6 Sodium 129 L D Potassium 2.8 L* Chloride 90 L D Carbon Dioxide 21 Anion Gap 18 H BUN 73 H Creatinine 4.6 H POC Glucometer 86 Random Glucose 544 H* D Calcium 5.8 L* Magnesium 1.6 L Blood Type Antibody Screen Crossmatch 03/08/16 03/08/16 11:20 13:00 WBC RBC Hgb Hct MCV MCHC RDW Plt Count MPV Neutrophils % Lymphocytes % Monocytes % Eosinophils % Basophils % Sodium Potassium Chloride Carbon Dioxide Anion Gap BUN Creatinine POC Glucometer 132 Random Glucose Calcium Magnesium Blood Type O POSITIVE Antibody Screen Negative Crossmatch See Detail Active Medications Generic Name Dose Route Start Last Admin Trade Name Freq PRN Reason Stop Dose Admin Acetaminophen 650 mg 03/07/16 13:14 12/26/16 14:43 Tylenol - PO 650 mg Q6H PRN Administration FEVER OR PAIN Albuterol/Ipratropium 1 amp 03/06/16 18:03 03/08/16 04:44 Duoneb - NEB 1 amp Q4H PRN Administration SHORTNESS OF BREATH Arformoterol Tartrate 1 amp 03/06/16 22:00 03/08/16 09:32 Brovana (Restricted To Pulmonology/Resp) - NEB 1 amp BID TAM Administration Bacitracin 1 applic 03/06/16 22:00 03/08/16 13:30 Bacitracin - TP 1 applic BID TAM Administration Calcium Carbonate/Cholecalciferol 2 tab 03/07/16 16:30 03/08/16 10:25 Os-Guille 500+D - PO 2 tab DAILY TAM Administration Heparin Sodium (Porcine) 5,000 unit 03/06/16 22:00 03/08/16 10:26 Heparin - SQ 5,000 unit BID TAM Administration Piperacillin Sod/Tazobactam Sod 50 mls @ 100 mls/hr 03/07/16 02:00 03/08/16 10: 35 Zosyn 2.25gm Ivpb (Pre-Docked) IVPB 100 mls/hr Q8H-IV TAM Administration Multivitamins/Minerals/Vitamin C 1 tab 03/07/16 10:00 03/08/16 13:17 Tab-A-Vit - PO Not Given DAILY TAM Ondansetron HCl 4 mg 03/08/16 13:09 03/08/16 13:30 Zofran Injection IVPB 4 mg Q6H PRN Administration NAUSEA Sevelamer Carbonate 0.8 gm 03/07/16 08:00 03/08/16 12:54 Renvela Powder Packet - PO Not Given TIDCM TAM ASSESSMENT/PLAN: 65 year old female ESRD on HD (//) throat CA (diagnosed 3-4 months ago received chemo/radiation), anemia admitted for AMS and worsening SOB, failure to thrive. Plan: 1. Acute on chronic hypoxic resp failure, aspiration PNA -improving. Transferred out of ICU on 03/06 -can be transitioned to throughout day/nighttime -- unable to trial NC as pt has significant dried blood/crusting - Cont brovana - Cont duonebs -resolving infiltrate, leukocytosis - cont zosyn -ID following -nodular density seen on right side, for now will treat infiltrate. Pt recently out of ICU and will monitor resp status as CT scan is not emergent for treatment 2. Vascular graft declotting -pt awaiting declotting tomorrow -receive 2 units pRBC with blood to bring Hgb >8 -pt is medically clear to undergo procedure if done with local anesthesia. Explains to that if general anesthesia is required it would be a high risk procedure given her respiratory status and diagnosis of throat cancer (s/p chemo 8 weeks ago) -called to discuss and inform Vascular -no further testing required for local procedure, if general anesthesia required would request anesthesia pre-op eval on the floors prior to securing time slot 3. ESRD TTS -HD per nephro -plan to remove fem cath tonight 4. Electrolyte abnormalities - Cont renvela, powder formulation for GT -also with hypokalemia - repleted, repeat BMP -have asked dietary to re-eval as nutritional needs do not seem to be adequate. Inaccurate FS as 86 on FS but random glucose 544. Have stopped D5W for this reason as random glucose likely to be more accurate. 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 Acute on chronic anemia -likely due to CKD. Drop today does not seem to be related to GIB -have transfused 2 units pre-op. Will continue to monitor. Possibly to due to ?lab error/continue blood draws -Will monitor clinically and recheck in AM 6 Throat cancer - Unable to swallow d/t pain - s/p chemo 8 weeks ago 7 Facial abrasions - Bacitracin bid 8. Stage 2 pressure ulcer - C/D/I CODE STATUS: DNR/DNI Visit type - Emergency Visit Emergency Visit: Yes ED Registration Date: 03/03/16 Care time: The patient presented to the Emergency Department on the above date and was hospitalized for further evaluation of their emergent condition. - New Patient This patient is new to me today: No - Critical Care Critical Care patient: No
[2016-03-08 19:10] LABS: CALCIUM 8.4 mg/dL (8.5-10.1); CREATININE 1.2 mg/dL (0.55-1.02)
--- NOTE | 2016-03-08 19:58 | HOSP ---
<He Miranda - Last Filed: 03/08/16 19:58> Physical Examination Vital Signs: Vital Signs Temperature 98.3 F 03/08/16 19:05 Pulse Rate 104 H 03/08/16 19:35 Respiratory Rate 24 03/08/16 19:35 Blood Pressure 165/94 03/08/16 19:35 O2 Sat by Pulse Oximetry (%) 98 03/08/16 09:28 Labs: CBC, BMP 03/08/16 05:55 03/08/16 18:00 <Luna Ferrell - Last Filed: 03/08/16 20:12> Subjective - Review of Symptoms Subjective: Patient was seen and examined. Sign out was given by Day team to assess patient after HD due to concern for SOB. Physical Examination Vital Signs: Vital Signs Temperature 98.3 F 03/08/16 19:05 Pulse Rate 104 H 03/08/16 19:35 Respiratory Rate 24 03/08/16 19:35 Blood Pressure 165/94 03/08/16 19:35 O2 Sat by Pulse Oximetry (%) 98 03/08/16 09:28 Findings/Remarks: GENERAL: Awake, alert, and fully oriented, in mild distress. HEENT: Atraumatic. PERRLA, EOMI. Moist mucosa. No JVD LUNGS: + Bilateral rales. +Mild respiratory distress. +Accessory muscle use during inspiration. HEART: + Tachycardic. Regular rhythm, normal S1 and S2, no murmurs, rubs or gallops, peripheral pulses normal and equal bilaterally. ABDOMEN: Soft, nontender, normoactive bowel sounds. No guarding, no rebound. No masses EXTREMITIES: Normal inspection, Normal range of motion, no edema. No clubbing or cyanosis. NEUROLOGICAL: Cranial nerves II through XII grossly intact. No focal sensorimotor deficits SKIN: Warm, Dry, normal turgor, no rashes or lesions noted. Labs: CBC, BMP 03/08/16 05:55 03/08/16 18:00 Hospitalist Encounter Assessment: BiPAP -- BiPAP machine overnight -- Aspiration Precaution -- Hold feeds while on BiPAP, -- Head of bed elevated to 30-45 degrees -- NPO while on BiPAP -- Patient is going for thrombrectomy -- Keep NPO for overnight -- Check finger stick blood glucose every 4 hours -- Duonebs every 6 hours Palliative Care -- Discussed comfort measures with family at bedside due to DNR/DNI status. -- Family will discuss with healthcare proxy and inform nursing team once update is given -- 1 Dose of Morphine 0.5 mg for comfort care. Documentation prepared by Luna Ferrell, acting as vice president medical affairs for He Miranda MD
[2016-03-08] MEDS ORDERED: IPRATROPIUM BR 0.02% 0.5 MG/2.5 ML VIAL.NEB. NEB PRN (20:04)
[2016-03-08] MEDS ORDERED: morphine CARPU-JECT 2 MG/1 ML DISP.SYRIN IVPUSH ONE (20:05)
[2016-03-08] MEDS ORDERED: GLUCAGON 1 MG KIT IM ONE (20:06)
[2016-03-08] MEDS ORDERED: DEXTROSE 50%-WATER 50 ML VIAL IVPUSH PRN (20:06)
[2016-03-08] MEDS ORDERED: morphine CARPU-JECT 2 MG/1 ML DISP.SYRIN IM ONE (21:50)
[2016-03-09 00:06] LABS: HEP B SURFACE AB Non Reactive (.)
[2016-03-09] MEDS ORDERED: morphine CARPU-JECT 2 MG/1 ML DISP.SYRIN IM ONE (01:30)
[2016-03-09] MEDS: PIPERACILLIN/TAZOB 2.25 GM 50 ML IVPB SCH ×3 (01:47→18:11)
[2016-03-09] MEDS: HEPARIN NA (PORCINE) 5,000 UNITS/ML 1ML VIAL SQ SCH ×4 (02:04→21:29)
[2016-03-09] MEDS ORDERED: DEXTROSE 50%-WATER 50 ML VIAL IVPUSH ONE (05:02)
[2016-03-09] MEDS: BACITRACIN 30 GM TUBE TOPICAL OINTMENT TP SCH ×2 (05:46→11:29)
[2016-03-09 08:11] LABS: MCH 31.1 pg (25.7-33.7); MCHC 32.6 g/dl (32.0-36.0); MEAN CELL VOLUME 95.5 fl (80-96); MEAN PLT VOLUME 8.4 fl (7.5-11.1); PLATELET COUNT 112 K/MM3 (134-434); RDW 19.2 % (11.6-15.6); WHITE BLOOD COUNT 16.4 K/mm3 (4.0-10.0)
[2016-03-09 08:56] LABS: CALCIUM 7.3 mg/dL (8.5-10.1); CREATININE 4.3 mg/dL (0.55-1.02)
[2016-03-09] MEDS: ARFORMOTEROL TARTRATE 15 MCG/2 ML VIAL NEB SCH ×2 (09:25→22:10)
[2016-03-09] MEDS: SEVELAMER CARBONATE 0.8 GM POWDER PACKET PO SCH ×3 (11:28→18:10)
[2016-03-09] MEDS: MULTIVITAMINS (DAILY MVI) TABLET (FP) PO SCH ×2 (11:29→12:59)
[2016-03-09] MEDS: CALCIUM 500MG/VIT-D 200 UNITS COMBO TABLET (FP) PO SCH ×2 (11:29→12:59)
[2016-03-09] MEDS: KCL 10 MEQ IVPB 100 ML IVPB SCH ×2 (11:34→12:52)
--- NOTE | 2016-03-09 12:17 | PN ---
Progress Note (short form) - Note Progress Note: PULMONARY CHART REVIEWED PATIENT EXAMINED LONG DISCUSSION WITH /SON THEY WISH TO CANCEL IMPENDING SURGERY(LEFT UPPER EXT THROMBECTOMY) THEY NO LONGER WANT HD TO BE DONE THEY ARE CONSIDERING HOSPICE/MS DRIP THEY NEED TO CONFER WITH ONE MORE FAMILY MEMBER AND WILL INFORM US MERY. I HAVE CANCELLED SURGERY Phuc JIMENEZ MD
--- NOTE | 2016-03-09 12:54 | PN ---
Progress Note, Physician History of Present Illness: Pt seen and examined at bedside. She is lethargic. - Current Medication List Current Medications: Active Medications Acetaminophen (Tylenol -) 650 mg PO Q6H PRN PRN Reason: FEVER OR PAIN Last Admin: 03/07/16 14:43 Dose: 650 mg Albuterol/Ipratropium (Duoneb -) 1 amp NEB Q4H PRN PRN Reason: SHORTNESS OF BREATH Last Admin: 03/08/16 04:44 Dose: 1 amp Arformoterol Tartrate (Brovana (Restricted To Pulmonology/Resp) -) 1 amp NEB BID TAM Last Admin: 03/09/16 09:25 Dose: 1 amp Bacitracin (Bacitracin -) 1 applic TP BID [facility] Last Admin: 03/09/16 11:29 Dose: 1 applic Calcium Carbonate/Cholecalciferol (Os-Guille 500+D -) 2 tab PO DAILY TAM Last Admin: 03/09/16 11:29 Dose: Not Given Heparin Sodium (Porcine) (Heparin -) 5,000 unit SQ BID TAM Last Admin: 03/09/16 11:39 Dose: Not Given Piperacillin Sod/Tazobactam Sod (Zosyn 2.25gm Ivpb (Pre-Docked)) 50 mls @ 100 mls/hr IVPB Q8H-IV TAM Last Admin: 03/09/16 10:55 Dose: 100 mls/hr Ipratropium [place] (Atrovent 0.02% Nebulizer -) 1 amp NEB Q6H PRN PRN Reason: WHEEZING Multivitamins/Minerals/Vitamin C (Tab-A-Vit -) 1 tab PO DAILY TAM Last Admin: 03/09/16 11:29 Dose: Not Given Ondansetron HCl (Zofran Injection) 4 mg IVPB Q6H PRN PRN Reason: NAUSEA Last Admin: 03/08/16 13:30 Dose: 4 mg Sevelamer Carbonate (Renvela Powder Packet -) 0.8 gm PO TIDCM TAM Last Admin: 03/09/16 11:28 Dose: Not Given - Objective Vital Signs: Vital Signs Temperature 97.3 F L 03/09/16 06:00 Pulse Rate 68 03/09/16 06:00 Respiratory Rate 20 03/09/16 06:00 Blood Pressure 104/70 03/09/16 06:00 O2 Sat by Pulse Oximetry (%) 95 03/09/16 09:25 Constitutional: Yes: Calm Eyes: Yes: Conjunctiva Clear Cardiovascular: Yes: S1, S2 Respiratory: Yes: On BiPap Gastrointestinal: Yes: Soft Genitourinary: Yes: Incontinence Edema: No Integumentary: Yes: Other (burn on face) Neurological: Yes: Lethargy Labs: CBC, BMP 03/09/16 06:45 03/09/16 06:45 INR, PTT INR 1.24 (0.82-1.09) H 03/03/16 17:04 Problem List - Problems (1) COPD (chronic obstructive pulmonary disease) case management patient Code(s): [id number] - (2) Hypoglycemia Code(s): E16.2 - HYPOGLYCEMIA, UNSPECIFIED (3) ESRD (end stage renal disease) Code(s): N18.6 - END STAGE RENAL DISEASE (4) Tobacco dependence Code(s): F17.200 - NICOTINE DEPENDENCE, UNSPECIFIED, UNCOMPLICATED (5) Anemia, chronic renal failure Code(s): N18.9 - CHRONIC KIDNEY DISEASE, UNSPECIFIED D63.1 - ANEMIA IN CHRONIC KIDNEY DISEASE Qualifiers: Chronic kidney disease stage: stage 4 (severe) Qualified Code(s): N18.4 - Chronic kidney disease, stage 4 (severe); D63.1 - Anemia in chronic kidney disease Assessment/Plan Current Medications Generic Name Dose Route Start Last Admin Trade Name Freq PRN Reason Stop Dose Admin Acetaminophen 650 mg 03/07/16 13:14 03/07/16 14:43 Tylenol - PO 650 mg Q6H PRN Administration FEVER OR PAIN Albuterol/Ipratropium 1 amp 03/06/16 18:03 03/08/16 04:44 Duoneb - NEB 1 amp Q4H PRN Administration SHORTNESS OF BREATH Arformoterol Tartrate 1 amp 03/06/16 22:00 03/09/16 09:25 Brovana (Restricted To Pulmonology/Resp) - NEB 1 amp BID TAM Administration Bacitracin 1 applic 03/06/16 22:00 03/09/16 11:29 Bacitracin - TP 1 applic BID TAM Administration Calcium Carbonate/Cholecalciferol 2 tab 03/07/16 16:30 03/09/16 11:29 Os-Guille 500+D - PO Not Given DAILY TAM Heparin Sodium (Porcine) 5,000 unit 03/06/16 22:00 03/09/16 11:39 Heparin - SQ Not Given BID TAM Piperacillin Sod/Tazobactam Sod 50 mls @ 100 mls/hr 03/07/16 02:00 03/09/16 10: 55 Zosyn 2.25gm Ivpb (Pre-Docked) IVPB 100 mls/hr Q8H-IV TAM Administration Ipratropium [place] 1 amp 03/08/16 20:04 Atrovent 0.02% Nebulizer - NEB Q6H PRN WHEEZING Multivitamins/Minerals/Vitamin C 1 tab 03/07/16 10:00 03/09/16 11:29 Tab-A-Vit - PO Not Given DAILY TAM Ondansetron HCl 4 mg 03/08/16 13:09 03/08/16 13:30 Zofran Injection IVPB 4 mg Q6H PRN Administration NAUSEA Sevelamer Carbonate 0.8 gm 03/07/16 08:00 03/09/16 11:28 Renvela Powder Packet - PO Not Given TIDCM TAM Impression 1. ESRD 2. dyspnea 3. COPD 4. throat cancer 5. respiratory failure requiring bipap 6. hyperkalemia 7. anemia 8. av graft malfunction Plan - had a long discussion with pts and her son, who she has made the HCP. We discussed palliative care and hospice. They have asked to cancel the thrombectomy today and will consider stopping HD as well. - can resume feeds - will follow - labs reviewed - cont bipap - overall prognosis is poor - cont tube feeds, dietary on board Dr Pena
[2016-03-09] MEDS ORDERED: PT OWN MED DRAWER 7, Y5N ONE (12:58)
--- NOTE | 2016-03-09 13:09 | PN ---
Progress Note, Physician History of Present Illness: No focal complaint Chronically ill appearing afebrile - Current Medication List Current Medications: Active Medications Acetaminophen (Tylenol -) 650 mg PO Q6H PRN PRN Reason: FEVER OR PAIN Last Admin: 03/07/16 14:43 Dose: 650 mg Albuterol/Ipratropium (Duoneb -) 1 amp NEB Q4H PRN PRN Reason: SHORTNESS OF BREATH Last Admin: 03/08/16 04:44 Dose: 1 amp Arformoterol Tartrate (Brovana (Restricted To Pulmonology/Resp) -) 1 amp NEB BID TAM Last Admin: 03/09/16 09:25 Dose: 1 amp Bacitracin (Bacitracin -) 1 applic TP BID TAM Last Admin: 03/09/16 11:29 Dose: 1 applic Calcium Carbonate/Cholecalciferol (Os-Guille 500+D -) 2 tab PO DAILY TAM Last Admin: 03/09/16 12:59 Dose: 2 tab Heparin Sodium (Porcine) (Heparin -) 5,000 unit SQ BID TAM Last Admin: 03/09/16 12:53 Dose: 5,000 unit Piperacillin Sod/Tazobactam Sod (Zosyn 2.25gm Ivpb (Pre-Docked)) 50 mls @ 100 mls/hr IVPB Q8H-IV TAM Last Admin: 03/09/16 10:55 Dose: 100 mls/hr Ipratropium [place] (Atrovent 0.02% Nebulizer -) 1 amp NEB Q6H PRN PRN Reason: WHEEZING Multivitamins/Minerals/Vitamin C (Tab-A-Vit -) 1 tab PO DAILY TAM Last Admin: 03/09/16 12:59 Dose: 1 tab Ondansetron HCl (Zofran Injection) 4 mg IVPB Q6H PRN PRN Reason: NAUSEA Last Admin: 03/08/16 13:30 Dose: 4 mg Sevelamer Carbonate (Renvela Powder Packet -) 0.8 gm PO TIDCM TAM Last Admin: 03/09/16 12:58 Dose: 0.8 gm - Objective Vital Signs: Vital Signs Temperature 97.3 F L 03/09/16 06:00 Pulse Rate 68 03/09/16 06:00 Respiratory Rate 20 03/09/16 06:00 Blood Pressure 104/70 03/09/16 06:00 O2 Sat by Pulse Oximetry (%) 95 03/09/16 09:25 Constitutional: Yes: No Distress, Cachectic Eyes: Yes: Conjunctiva Clear Cardiovascular: Yes: Regular Rate and Rhythm, S1, S2 Respiratory: Yes: Diminished Gastrointestinal: Yes: Normal Bowel Sounds, Soft. No: Tenderness Edema: No Labs: CBC, BMP 03/09/16 06:45 03/09/16 06:45 INR, PTT INR 1.24 (0.82-1.09) H 03/03/16 17:04 Assessment/Plan Possible aspiration pneumonia Sepsis Leukocytosis- Head and neck ca Continue empiric zosyn Prognosis poor
[2016-03-09 14:14] LABS: CALCIUM 7.6 mg/dL (8.5-10.1); CREATININE 4.5 mg/dL (0.55-1.02)
--- NOTE | 2016-03-09 18:04 | PN ---
Physical Exam: SUBJECTIVE: Patient seen and examined. Pt not doing well today, on BIPAP. Palliative had long discussion with family and we have agreed to do morphine 2mg q4h prn for patient comfort. LUE thrombectomy was cancelled due to respiratory status. No plan for further HD OBJECTIVE: Vital Signs Period Temp Pulse Resp BP Sys/Morales Pulse Ox Last 24 Hr 97.3 F-98.6 F 68-104 18-28 104-176/51-114 95-98 Gen: frail appearing, cachetic female, back on BIPAP. Appears tachypneic HEENT: ecchymosis and dried blood over face Pulm: scattered rhonchi, no wheezing, RCW port CV: tachycardic Abd: +PEG intact, soft, NT Ext: no LE edema, thin, R femoral trialysis catheter Skin: multiple areas of ecchymosis, sacral ulcer with C/D/I Laboratory Results - last 24 hr 03/05/16 03/05/16 03/08/16 11:30 13:50 18:00 WBC RBC Hgb Hct MCV MCHC RDW Plt Count MPV Sodium 140 Potassium 3.0 L Chloride 98 Carbon Dioxide 33 H D Anion Gap 9 BUN 15 D Creatinine 1.2 H D POC Glucometer Random Glucose 81 D Calcium 8.4 L D Magnesium Hepatitis A Ab Total Negative Hep Bs Antigen Negative Hep Bs Antibody Non reactive Hep B Core Total Ab Negative Hepatitis C Antibody 0.1 03/08/16 03/09/16 03/09/16 22:21 01:16 04:17 WBC RBC Hgb Hct MCV MCHC RDW Plt Count MPV Sodium Potassium Chloride Carbon Dioxide Anion Gap BUN Creatinine POC Glucometer 104 83 74 Random Glucose Calcium Magnesium Hepatitis A Ab Total Hep Bs Antigen Hep Bs Antibody Hep B Core Total Ab Hepatitis C Antibody 03/09/16 03/09/16 03/09/16 06:08 06:45 06:45 WBC 16.4 H RBC 4.18 D Hgb 13.0 D Hct 39.9 D MCV 95.5 MCHC 32.6 RDW 19.2 H D Plt Count 112 L MPV 8.4 Sodium 140 Potassium 3.7 D Chloride 104 Carbon Dioxide 20 L D Anion Gap 16 BUN 74 H D Creatinine 4.3 H D POC Glucometer 66 Random Glucose 119 H D Calcium 7.3 L Magnesium 2.0 D Hepatitis A Ab Total Hep Bs Antigen Hep Bs Antibody Hep B Core Total Ab Hepatitis C Antibody 03/09/16 03/09/16 12:27 13:25 WBC RBC Hgb Hct MCV MCHC RDW Plt Count MPV Sodium 137 Potassium 4.4 Chloride 104 Carbon Dioxide 23 Anion Gap 10 BUN 80 H Creatinine 4.5 H POC Glucometer 222 Random Glucose 62 L D Calcium 7.6 L Magnesium Hepatitis A Ab Total Hep Bs Antigen Hep Bs Antibody Hep B Core Total Ab Hepatitis C Antibody Active Medications Generic Name Dose Route Start Last Admin Trade Name Freq PRN Reason Stop Dose Admin Acetaminophen 650 mg 03/07/16 13:14 03/07/16 14:43 Tylenol - PO 650 mg Q6H PRN Administration FEVER OR PAIN Albuterol/Ipratropium 1 amp 03/06/16 18:03 03/08/16 04:44 Duoneb - NEB 1 amp Q4H PRN Administration SHORTNESS OF BREATH Arformoterol Tartrate 1 amp 03/06/16 22:00 03/09/16 09:25 Brovana (Restricted To Pulmonology/Resp) - NEB 1 amp BID TAM Administration Bacitracin 1 applic 03/06/16 22:00 03/09/16 11:29 Bacitracin - TP 1 applic BID TAM Administration Calcium Carbonate/Cholecalciferol 2 tab 03/07/16 16:30 03/09/16 12:59 Os-Guille 500+D - PO 2 tab DAILY TAM Administration Heparin Sodium (Porcine) 5,000 unit 03/06/16 22:00 03/09/16 12:53 Heparin - SQ 5,000 unit BID TAM Administration Piperacillin Sod/Tazobactam Sod 50 mls @ 100 mls/hr 03/07/16 02:00 03/09/16 10: 55 Zosyn 2.25gm Ivpb (Pre-Docked) IVPB 100 mls/hr Q8H-IV TAM Administration Ipratropium [place] 1 amp 03/08/16 20:04 Atrovent 0.02% Nebulizer - NEB Q6H PRN WHEEZING Morphine Sulfate 1 mg 03/09/16 17:05 Morphine Injection - IVPUSH Q2H PRN PAIN Multivitamins/Minerals/Vitamin C 1 tab 03/07/16 10:00 03/09/16 12:59 Tab-A-Vit - PO 1 tab DAILY TAM Administration Ondansetron HCl 4 mg 03/08/16 13:09 03/08/16 13:30 Zofran Injection IVPB 4 mg Q6H PRN Administration NAUSEA Sevelamer Carbonate 0.8 gm 03/07/16 08:00 03/09/16 12:58 Renvela Powder Packet - PO 0.8 gm TIDCM TAM Administration ASSESSMENT/PLAN: Tachypnea, acute on chronic respiratory failure - pt had a bad night yesterday and has been on BIPAP today. Long discussion with family members and have agreed to start morphine prn pushes for comfort -Zosyn for now, but appears family may move toward complete Palliative measures as she has not progressed very far clinically -Based on family decision/patient's clinical status tomorrow may need to start a morphine gtt for comfort ESRD (//Mon) -plan for declotting of graft were canceled due to respiratory issues -no plans to reschedule -still with femoral HD cath in place but should be removed if move toward complete Palliative measures -spoke with this evening and states he would like to hold off on labs/ HD. Would like to speak to Dr. Pena tomorrow for final decision Anemia -received 2 units pRBC on 03/08 prior to impending graft declotting which has since been canceled Electrolytes abnormalities - hypokalemia, resolved -PEG feeds slowly restarting. Pt not tolerating 40cc/hr and having abdominal pain and nausea. -can start tube feedings at lower rate to prevent hypoglycemia Throat cancer - Unable to swallow d/t pain - s/p chemo 8 weeks ago Facial abrasions - Bacitracin bid Stage 2 pressure ulcer - C/D/I CODE STATUS: DNR/DNI Visit type - Emergency Visit Emergency Visit: Yes ED Registration Date: 03/03/16 Care time: The patient presented to the Emergency Department on the above date and was hospitalized for further evaluation of their emergent condition. - New Patient This patient is new to me today: No - Critical Care Critical Care patient: No
[2016-03-09] MEDS: morphine CARPU-JECT 2 MG/1 ML DISP.SYRIN IVPUSH PRN (18:08)
[2016-03-10] MEDS: morphine CARPU-JECT 2 MG/1 ML DISP.SYRIN IVPUSH PRN ×6 (00:01→18:29)
[2016-03-10] MEDS: PIPERACILLIN/TAZOB 2.25 GM 50 ML IVPB SCH ×3 (01:24→18:28)
[2016-03-10] MEDS: SEVELAMER CARBONATE 0.8 GM POWDER PACKET PO SCH ×3 (09:00→18:28)
[2016-03-10] MEDS: MULTIVITAMINS (DAILY MVI) TABLET (FP) PO SCH (10:25)
[2016-03-10] MEDS: CALCIUM 500MG/VIT-D 200 UNITS COMBO TABLET (FP) PO SCH (10:26)
[2016-03-10] MEDS: ARFORMOTEROL TARTRATE 15 MCG/2 ML VIAL NEB SCH ×2 (10:30→23:35)
[2016-03-10] MEDS: HEPARIN NA (PORCINE) 5,000 UNITS/ML 1ML VIAL SQ SCH ×2 (10:39→22:39)
--- NOTE | 2016-03-10 10:50 | DS ---
Physical Exam: SUBJECTIVE: Patient seen and examined OBJECTIVE: Vital Signs Period Temp Pulse Resp BP Sys/Morales Pulse Ox Last 24 Hr 97.2 F-98.6 F 68-82 20-23 141-164/51-109 98 PHYSICAL EXAM GENERAL: The patient is awake, alert, and fully oriented, in no acute distress. HEAD: Normal with no signs of trauma. EYES: PERRL, extraocular movements intact, sclera anicteric, conjunctiva clear. ENT: Ears normal, nares patent, oropharynx clear without exudates, moist mucous membranes. NECK: Trachea midline, full range of motion, supple. LUNGS: Breath sounds equal, clear to auscultation bilaterally, no wheezes, no crackles, no accessory muscle use. HEART: Regular rate and rhythm, S1, S2 without murmur, rub or gallop. ABDOMEN: Soft, nontender, nondistended, normoactive bowel sounds, no guarding, no rebound, no hepatosplenomegaly, no masses. EXTREMITIES: 2+ pulses, warm, well-perfused, no edema. NEUROLOGICAL: Cranial nerves II through XII grossly intact. Normal speech, gait not observed. PSYCH: Normal mood, normal affect. SKIN: Warm, dry, normal turgor, no rashes or lesions noted. LABS Laboratory Results - last 24 hr 03/09/16 03/09/16 03/09/16 12:27 13:25 17:57 Sodium 137 Potassium 4.4 Chloride 104 Carbon Dioxide 23 Anion Gap 10 BUN 80 H Creatinine 4.5 H POC Glucometer 222 115 Random Glucose 62 L D Calcium 7.6 L 03/09/16 03/10/16 21:27 05:36 Sodium Potassium Chloride Carbon Dioxide Anion Gap BUN Creatinine POC Glucometer 115 134 Random Glucose Calcium HOSPITAL COURSE: Date of Admission:03/03/16 Date of Discharge: 03/10/16 Discharge Summary Reason For Visit: ESRD/LEUKOCYTOSIS/HYPOGLYCEMIA Current Active Problems Acute on chronic respiratory failure with hypoxia and hypercapnia (Acute) COPD (chronic obstructive pulmonary disease) case management patient (Acute) Hypoglycemia (Acute) Leukocytosis (Acute) UTI (urinary tract infection) (Acute) Volume overload (Acute) ESRD (end stage renal disease) (Chronic) Hypertension (Chronic) - Instructions Referrals: Christoph Lemons [Primary Care Provider] - - Home Medications Comprehensive Discharge Medication List: Ambulatory Orders Albuterol 2.5/Ipratropium 0.5 [Duoneb -] 1 neb IH QID 07/15/15 Multivitamins with Iron [Daily Isadora with Iron] 1 each PO DAILY 07/15/15 Nifedipine ER [Procardia XL -] 90 mg PO DAILY 07/15/15 Paroxetine HCl 30 mg PO DAILY 07/15/15 Tiotropium [place] [Spiriva] 1 inh PO DAILY 07/15/15 Enalapril Maleate [Vasotec -] 20 mg PO BID #60 tablet 07/17/15 Labetalol HCl [Normodyne -] 400 mg PO TID #180 tablet 07/17/15 Sevelamer Carbonate [Renvela -] 800 mg PO TID 09/29/15 Budesonide/Formeterol Fumarate [SYMBICORT 160/4.5mcg -] 1 inh PO BID 10/13/15 Furosemide [Lasix -] 80 mg PO DAILY #30 tablet 10/15/15 - Discharge Referral Referred to [facility] Med P.C.: No
[2016-03-10] MEDS: BACITRACIN 30 GM TUBE TOPICAL OINTMENT TP SCH (13:02)
--- NOTE | 2016-03-10 13:16 | PN ---
Progress Note (short form) - Note Progress Note: PULMONARY Dependent on BiPAP. Receiving morphine PRN. Last Vital Signs Temp Pulse Resp BP Pulse Ox 98.4 F 77 22 164/109 98 03/10/16 10:00 03/10/16 10:00 03/10/16 10:00 03/10/16 10:00 03/09/16 21:00 Gen: frail, cachectic Heart: RRR Lung: distant breath sounds, no wheezes Abd: soft, nontender Ext: no edema CBC, BMP 03/09/16 06:45 03/09/16 13:25 Active Medications Acetaminophen (Tylenol -) 650 mg PO Q6H PRN PRN Reason: FEVER OR PAIN Last Admin: 03/07/16 14:43 Dose: 650 mg Albuterol/Ipratropium (Duoneb -) 1 amp NEB Q4H PRN PRN Reason: SHORTNESS OF BREATH Last Admin: 03/08/16 04:44 Dose: 1 amp Arformoterol Tartrate (Brovana (Restricted To Pulmonology/Resp) -) 1 amp NEB BID TAM Last Admin: 03/09/16 22:10 Dose: 1 amp Bacitracin (Bacitracin -) 1 applic TP BID TAM Last Admin: 03/10/16 13:02 Dose: 1 applic Calcium Carbonate/Cholecalciferol (Os-Guille 500+D -) 2 tab PO DAILY [facility] Last Admin: 03/10/16 10:26 Dose: 2 tab Heparin Sodium (Porcine) (Heparin -) 5,000 unit SQ BID TAM Last Admin: 03/10/16 10:39 Dose: 5,000 unit Piperacillin Sod/Tazobactam Sod (Zosyn 2.25gm Ivpb (Pre-Docked)) 50 mls @ 100 mls/hr IVPB Q8H-IV TAM Last Admin: 03/10/16 10:27 Dose: 100 mls/hr Ipratropium [place] (Atrovent 0.02% Nebulizer -) 1 amp NEB Q6H PRN PRN Reason: WHEEZING Morphine Sulfate (Morphine Injection -) 2 mg IVPUSH Q2H PRN PRN Reason: PAIN Multivitamins/Minerals/Vitamin C (Tab-A-Vit -) 1 tab PO DAILY TAM Last Admin: 03/10/16 10:25 Dose: 1 tab Ondansetron HCl (Zofran Injection) 4 mg IVPB Q6H PRN PRN Reason: NAUSEA Last Admin: 03/08/16 13:30 Dose: 4 mg Sevelamer Carbonate (Renvela Powder Packet -) 0.8 gm PO TIDCM TAM Last Admin: 03/10/16 13:01 Dose: 0.8 gm A/P Acute on Chronic Hypoxic Respiratory Failure COPD Throat Ca ESRD on HD Hyperkalemia resolved Metabolic Acidosis resolved Anemia Hypoglycemia Failure to Thrive - HD per renal - continue empiric antibiotics - O2 to keep SpO2 >90% - BiPAP to assist in work of breathing - discussed with family at bedside pt's poor prognosis, recommended comfort measures - DVT prophylaxis
--- NOTE | 2016-03-10 15:03 | PN ---
Progress Note, Physician History of Present Illness: Pt seen and examined at bedside. She is on bipap. - Current Medication List Current Medications: Active Medications Acetaminophen (Tylenol -) 650 mg PO Q6H PRN PRN Reason: FEVER OR PAIN Last Admin: 03/07/16 14:43 Dose: 650 mg Albuterol/Ipratropium (Duoneb -) 1 amp NEB Q4H PRN PRN Reason: SHORTNESS OF BREATH Last Admin: 03/08/16 04:44 Dose: 1 amp Arformoterol Tartrate (Brovana (Restricted To Pulmonology/Resp) -) 1 amp NEB BID TAM Last Admin: 03/10/16 10:30 Dose: 1 amp Bacitracin (Bacitracin -) 1 applic TP BID TAM Last Admin: 03/10/16 13:02 Dose: 1 applic Calcium Carbonate/Cholecalciferol (Os-Guille 500+D -) 2 tab PO DAILY TAM Last Admin: 03/10/16 10:26 Dose: 2 tab Heparin Sodium (Porcine) (Heparin -) 5,000 unit SQ BID TAM Last Admin: 03/10/16 10:39 Dose: 5,000 unit Piperacillin Sod/Tazobactam Sod (Zosyn 2.25gm Ivpb (Pre-Docked)) 50 mls @ 100 mls/hr IVPB Q8H-IV TAM Last Admin: 03/10/16 10:27 Dose: 100 mls/hr Ipratropium [place] (Atrovent 0.02% Nebulizer -) 1 amp NEB Q6H PRN PRN Reason: WHEEZING Morphine Sulfate (Morphine Injection -) 2 mg IVPUSH Q2H PRN PRN Reason: PAIN Multivitamins/Minerals/Vitamin C (Tab-A-Vit -) 1 tab PO DAILY TAM Last Admin: 03/10/16 10:25 Dose: 1 tab Ondansetron HCl (Zofran Injection) 4 mg IVPB Q6H PRN PRN Reason: NAUSEA Last Admin: 03/08/16 13:30 Dose: 4 mg Sevelamer Carbonate (Renvela Powder Packet -) 0.8 gm PO TIDCM TAM Last Admin: 03/10/16 13:01 Dose: 0.8 gm - Objective Vital Signs: Vital Signs Temperature 98.4 F 03/10/16 10:00 Pulse Rate 77 03/10/16 10:30 Respiratory Rate 22 03/10/16 10:00 Blood Pressure 164/109 03/10/16 10:00 O2 Sat by Pulse Oximetry (%) 98 03/10/16 10:30 Constitutional: Yes: Calm Eyes: Yes: Conjunctiva Clear HENT: Yes: Other (facial hernandez) Cardiovascular: Yes: S1, S2 Respiratory: Yes: On BiPap Gastrointestinal: Yes: Soft Genitourinary: Yes: Incontinence Musculoskeletal: Yes: Muscle Weakness Edema: No Neurological: Yes: Lethargy Labs: CBC, BMP 03/09/16 06:45 03/09/16 13:25 INR, PTT INR 1.24 (0.82-1.09) H 03/03/16 17:04 Problem List - Problems (1) COPD (chronic obstructive pulmonary disease) case management patient Code(s): LQV5797 - (2) Hypoglycemia Code(s): E16.2 - HYPOGLYCEMIA, UNSPECIFIED (3) ESRD (end stage renal disease) Code(s): N18.6 - END STAGE RENAL DISEASE (4) Tobacco dependence Code(s): F17.200 - NICOTINE DEPENDENCE, UNSPECIFIED, UNCOMPLICATED (5) Anemia, chronic renal failure Code(s): N18.9 - CHRONIC KIDNEY DISEASE, UNSPECIFIED D63.1 - ANEMIA IN CHRONIC KIDNEY DISEASE Qualifiers: Chronic kidney disease stage: stage 4 (severe) Qualified Code(s): N18.4 - Chronic kidney disease, stage 4 (severe); D63.1 - Anemia in chronic kidney disease Assessment/Plan Current Medications Generic Name Dose Route Start Last Admin Trade Name Freq PRN Reason Stop Dose Admin Acetaminophen 650 mg 03/07/16 13:14 03/07/16 14:43 Tylenol - PO 650 mg Q6H PRN Administration FEVER OR PAIN Albuterol/Ipratropium 1 amp 03/06/16 18:03 03/08/16 04:44 Duoneb - NEB 1 amp Q4H PRN Administration SHORTNESS OF BREATH Arformoterol Tartrate 1 amp 03/06/16 22:00 03/10/16 10:30 Brovana (Restricted To Pulmonology/Resp) - NEB 1 amp BID TAM Administration Bacitracin 1 applic 03/06/16 22:00 03/10/16 13:02 Bacitracin - TP 1 applic BID TAM Administration Calcium Carbonate/Cholecalciferol 2 tab 03/07/16 16:30 03/10/16 10:26 Os-Guille 500+D - PO 2 tab DAILY TAM Administration Heparin Sodium (Porcine) 5,000 unit 03/06/16 22:00 03/10/16 10:39 Heparin - SQ 5,000 unit BID TAM Administration Piperacillin Sod/Tazobactam Sod 50 mls @ 100 mls/hr 03/07/16 02:00 03/10/16 10: 27 Zosyn 2.25gm Ivpb (Pre-Docked) IVPB 100 mls/hr Q8H-IV TAM Administration Ipratropium [place] 1 amp 03/08/16 20:04 Atrovent 0.02% Nebulizer - NEB Q6H PRN WHEEZING Morphine Sulfate 2 mg 03/10/16 13:04 Morphine Injection - IVPUSH Q2H PRN PAIN Multivitamins/Minerals/Vitamin C 1 tab 03/07/16 10:00 03/10/16 10:25 Tab-A-Vit - PO 1 tab DAILY TAM Administration Ondansetron HCl 4 mg 03/08/16 13:09 03/08/16 13:30 Zofran Injection IVPB 4 mg Q6H PRN Administration NAUSEA Sevelamer Carbonate 0.8 gm 03/07/16 08:00 03/10/16 13:01 Renvela Powder Packet - PO 0.8 gm TIDCM TAM Administration Impression 1. ESRD 2. dyspnea 3. COPD 4. throat cancer 5. respiratory failure requiring bipap 6. hyperkalemia 7. anemia 8. av graft malfunction Plan - discussed plan with Norberto, her and HCP. They do not wish to continue with HD. He would like to keep her comfortable. He also does not want any more blood draws. - remove femoral catheter - discussed plan with medical team - will follow - cont bipap - overall prognosis is poor Dr Pena
--- NOTE | 2016-03-10 15:55 | PN ---
Physical Exam: SUBJECTIVE: Patient seen and examined. Resting quietly in bed. No distress noted. Pt denies any pain at this time. No respiratory distress noted. OBJECTIVE: Vital Signs - 24 hr 3 03/09/16 03/09/16 03/09/16 18:00 20:19 21:00 Temperature 97.6 F Pulse Rate 76 71 Respiratory 20 22 Rate Blood Pressure 146/101 141/92 O2 Sat by Pulse 98 Oximetry (%) 3 03/10/16 03/10/16 03/10/16 06:00 10:00 10:30 Temperature 97.2 F L 98.4 F Pulse Rate 68 77 77 Respiratory 20 22 Rate Blood Pressure 141/77 164/109 O2 Sat by Pulse 98 Oximetry (%) 3 03/10/16 14:25 Temperature Pulse Rate Respiratory Rate Blood Pressure O2 Sat by Pulse 98 Oximetry (%) GENERAL: The patient is awake, alert, and oriented to person and place, in no acute distress. + cachexia, temporal and clavicular wasting noted HEAD: Normal with no signs of trauma. EYES: PERRL, extraocular movements intact, sclera anicteric, conjunctiva clear. No ptosis. ENT: Ears normal, nares patent, oropharynx clear without exudates, moist mucous membranes. face noted with excoriations to forehead, cheek, perinasal and oral area. NECK: Trachea midline, full range of motion, supple. soft tissue masses noted , lizette left neck, firm, nonmobile, nontender LUNGS: Breath sounds equal, clear to auscultation bilaterally, no wheezes, no crackles, no accessory muscle use. HEART: Regular rate and rhythm, S1, S2 without murmur, rub or gallop. ABDOMEN: Soft, nontender, nondistended, normoactive bowel sounds, no guarding, no rebound, no hepatosplenomegaly, no masses. EXTREMITIES: 2+ pulses, warm, well-perfused, no edema. NEUROLOGICAL: Cranial nerves II through XII grossly intact. Normal speech, gait not observed. PSYCH: Normal mood, normal affect. SKIN: Warm, dry, normal turgor, no rashes or lesions noted Laboratory Results - last 24 hr 3 03/09/16 03/09/16 03/10/16 17:57 21:27 05:36 POC Glucometer 115 115 134 Active Medications 3 Generic Name Dose Route Start Last Admin Trade Name Freq PRN Reason Stop Dose Admin Acetaminophen 650 mg 03/07/16 13:14 03/07/16 14:43 Tylenol - PO 650 mg Q6H PRN Administration FEVER OR PAIN Albuterol/Ipratropium 1 amp 03/06/16 18:03 03/08/16 04:44 Duoneb - NEB 1 amp Q4H PRN Administration SHORTNESS OF BREATH Arformoterol Tartrate 1 amp 03/06/16 22:00 03/10/16 10:30 Brovana (Restricted To Pulmonology/Resp) - NEB 1 amp BID TAM Administration Bacitracin 1 applic 03/06/16 22:00 03/10/16 13:02 Bacitracin - TP 1 applic BID TAM Administration Calcium Carbonate/Cholecalciferol 2 tab 03/07/16 16:30 03/10/16 10:26 Os-Guille 500+D - PO 2 tab DAILY TAM Administration Heparin Sodium (Porcine) 5,000 unit 03/06/16 22:00 03/10/16 10:39 Heparin - SQ 5,000 unit BID TAM Administration Piperacillin Sod/Tazobactam Sod 50 mls @ 100 mls/hr 03/07/16 02:00 03/10/16 10: 27 Zosyn 2.25gm Ivpb (Pre-Docked) IVPB 100 mls/hr Q8H-IV ATM Administration Ipratropium [place] 1 amp 03/08/16 20:04 Atrovent 0.02% Nebulizer - NEB Q6H PRN WHEEZING Morphine Sulfate 2 mg 03/10/16 13:04 Morphine Injection - IVPUSH Q2H PRN PAIN Multivitamins/Minerals/Vitamin C 1 tab 03/07/16 10:00 03/10/16 10:25 Tab-A-Vit - PO 1 tab DAILY TAM Administration Ondansetron HCl 4 mg 03/08/16 13:09 03/08/16 13:30 Zofran Injection IVPB 4 mg Q6H PRN Administration NAUSEA Sevelamer Carbonate 0.8 gm 03/07/16 08:00 03/10/16 13:01 Renvela Powder Packet - PO 0.8 gm TIDCM TAM Administration ASSESSMENT/PLAN: 65yF with PMH ESRD, anemia, COPD, HTN, throat CA presented to the ED with SOB and altered mental status. Tachypnea, acute on chronic respiratory failure - morphine increased to 2mg Q2H PRN for resp distress earlier in the day for comfort with good effect - family wishes to continue IV antibiotics for now. - continue BiPAP as per family request ESRD (//Mon) - opting for no further dialysis or procedure to declot AV graft. Will DC dialysis catheter in groin Anemia - received 2 units pRBC on 03/08 prior to impending graft declotting which has since been canceled - no further lab draws as per pt . Electrolytes abnormalities - hypokalemia, resolved - PEG feeds slowly restarting. Pt not tolerating 40cc/hr and having abdominal pain and nausea. - start tube feedings at lower rate and titrate up as tolerated Throat cancer - Unable to swallow d/t pain - s/p chemo 8 weeks ago - family requesting palliative care, NO blood draws, no invasive procedures, DNR/DNI. Requesting continue antibiotics for now, cont BiPAP. discussed hospice care with family. Will let us know tomorrow. Facial abrasions - CONT Bacitracin bid Stage 2 pressure ulcer - Dressing in place, cont same. CODE STATUS: DNR/DNI Visit type - Emergency Visit Emergency Visit: Yes ED Registration Date: 03/03/16 Care time: The patient presented to the Emergency Department on the above date and was hospitalized for further evaluation of their emergent condition. - New Patient This patient is new to me today: No - Critical Care Critical Care patient: No - Discharge Referral Referred to [facility] Med P.C.: No
[2016-03-11] MEDS: NYSTATIN 100,000 UNIT/GM TOPICAL CREAM 15 GM TUBE TP SCH ×6 (00:15→17:59)
[2016-03-11] MEDS: morphine CARPU-JECT 2 MG/1 ML DISP.SYRIN IVPUSH PRN ×2 (02:13→10:44)
[2016-03-11] MEDS: BACITRACIN 30 GM TUBE TOPICAL OINTMENT TP SCH ×4 (02:14→22:31)
[2016-03-11] MEDS: PIPERACILLIN/TAZOB 2.25 GM 50 ML IVPB SCH ×3 (02:14→17:59)
[2016-03-11] MEDS ORDERED: PT OWN MED DRAWER 7, Y5N ONE (05:50)
[2016-03-11] MEDS: ARFORMOTEROL TARTRATE 15 MCG/2 ML VIAL NEB SCH ×2 (10:50→22:25)
[2016-03-11] MEDS: CALCIUM 500MG/VIT-D 200 UNITS COMBO TABLET (FP) PO SCH (11:10)
[2016-03-11] MEDS: HEPARIN NA (PORCINE) 5,000 UNITS/ML 1ML VIAL SQ SCH ×2 (11:10→22:31)
[2016-03-11] MEDS: MULTIVITAMINS (DAILY MVI) TABLET (FP) PO SCH (11:10)
[2016-03-11] MEDS: SEVELAMER CARBONATE 0.8 GM POWDER PACKET PO SCH ×3 (11:10→17:58)
--- NOTE | 2016-03-11 11:45 | PN ---
Physical Exam: SUBJECTIVE: Patient seen and examined Patient met in bed appears to have some pain. Minimal response to morphine IVPB so Morphine drip started at 1mg/hr with good response DNR/DNI On palliative care OBJECTIVE: Vital Signs Period Temp Pulse Resp BP Sys/Morales Pulse Ox Last 24 Hr 97.1 F-98.2 F 64-75 16-24 142-177/85-113 98-100 GENERAL: slow response to verbal stimuli HEAD: Normal with no signs of trauma. EYES: PERRL, sclera anicteric, conjunctiva clear. ENT: Ears normal, nares patent, NECK: Trachea midline, supple. LUNGS: diminished air entry bilaterally HEART: Regular rate and rhythm, S1, S2 without murmur, rub or gallop. ABDOMEN: Soft, nontender, nondistended, normoactive bowel sounds, no guarding, no rebound, no hepatosplenomegaly, no masses. EXTREMITIES: 2+ pulses, warm, well-perfused, no edema. NEUROLOGICAL: Cranial nerves II through XII grossly intact. Normal speech, gait not observed. PSYCH: Normal mood, normal affect. SKIN: Warm, dry, normal turgor, no rashes or lesions noted Active Medications Generic Name Dose Route Start Last Admin Trade Name Freq PRN Reason Stop Dose Admin Acetaminophen 650 mg 03/07/16 13:14 03/07/16 14:43 Tylenol - PO 650 mg Q6H PRN Administration FEVER OR PAIN Albuterol/Ipratropium 1 amp 03/06/16 18:03 03/08/16 04:44 Duoneb - NEB 1 amp Q4H PRN Administration SHORTNESS OF BREATH Arformoterol Tartrate 1 amp 03/06/16 22:00 03/10/16 23:35 Brovana (Restricted To Pulmonology/Resp) - NEB 1 amp BID TAM Administration Bacitracin 1 applic 03/06/16 22:00 03/11/16 11:29 Bacitracin - TP 1 applic BID TAM Administration Calcium Carbonate/Cholecalciferol 2 tab 03/07/16 16:30 03/11/16 11:10 Os-Guille 500+D - PO Not Given DAILY TAM Heparin Sodium (Porcine) 5,000 unit 03/06/16 22:00 03/11/16 11:10 Heparin - SQ Not Given BID TAM Piperacillin Sod/Tazobactam Sod 50 mls @ 100 mls/hr 03/07/16 02:00 03/11/16 11: 29 Zosyn 2.25gm Ivpb (Pre-Docked) IVPB 100 mls/hr Q8H-IV TAM Administration Morphine Sulfate 100 mg/ 100 mls @ 1 mls/hr 03/11/16 12:00 Sodium Chloride IVPB TITR TAM Protocol 1 MG/HR Ipratropium [place] 1 amp 03/08/16 20:04 Atrovent 0.02% Nebulizer - NEB Q6H PRN WHEEZING Multivitamins/Minerals/Vitamin C 1 tab 03/07/16 10:00 03/11/16 11:10 Tab-A-Vit - PO Not Given DAILY TAM Nystatin 1 applic 03/10/16 18:00 03/11/16 11:29 Mycostatin Cream - TP 1 applic Q6HPO TAM Administration Ondansetron HCl 4 mg 03/08/16 13:09 03/08/16 13:30 Zofran Injection IVPB 4 mg Q6H PRN Administration NAUSEA Sevelamer Carbonate 0.8 gm 03/07/16 08:00 03/11/16 11:10 Renvela Powder Packet - PO Not Given TIDCM TAM ASSESSMENT/PLAN: 65 y/o female with PMHx ESRD (on HD), anemia, COPD, HTN, throat CA presented to the ED with SOB and altered mental status. Family opted for comfort/palliative care 1 acute on chronic respiratory failure: -continue Bipap per family -continue IV abx per family -morphine 2mg Q2H PRN dcd and changed to morphine drip at 1mg/h. to titrate for comfort/tachypneia 2 ESRD (T//Mon) - HCP does not want further dialysis. 3 Anemia - no further lab draws as per pt . 4 Electrolytes abnormalities - hypokalemia, resolved -no further lab work per HCP 5-Throat cancer - Unable to swallow d/t pain -continue with peg feeds -palliatve care on case-may consider transfer to inpatient hospice Dispo-may consider transfer to inpatient hospice, pain mgmt Problem List - Problems (1) COPD (chronic obstructive pulmonary disease) case management patient Code(s): [id number] - (2) UTI (urinary tract infection) Code(s): N39.0 - URINARY TRACT INFECTION, SITE NOT SPECIFIED Qualifiers: Urinary tract infection type: site unspecified Hematuria presence: without hematuria Qualified Code(s): N39.0 - Urinary tract infection, site not specified (3) Hypertension Code(s): I10 - ESSENTIAL (PRIMARY) HYPERTENSION Qualifiers: Hypertension type: secondary to other renal disorders Qualified Code(s) : I15.1 - Hypertension secondary to other renal disorders; N28.89 - Other specified disorders of kidney and ureter (4) Acute diastolic heart failure Code(s): I50.31 - ACUTE DIASTOLIC (CONGESTIVE) HEART FAILURE (5) Acute respiratory failure with hypoxemia Code(s): J96.01 - ACUTE RESPIRATORY FAILURE WITH HYPOXIA (6) Pneumonia Code(s): J18.9 - PNEUMONIA, UNSPECIFIED ORGANISM Qualifiers: Pneumonia type: due to unspecified organism Laterality: right Lung location: unspecified part of lung Qualified Code(s): J18.9 - Pneumonia, unspecified organism (7) Renal failure Code(s): N19 - UNSPECIFIED KIDNEY FAILURE (8) ESRD (end stage renal disease) Code(s): N18.6 - END STAGE RENAL DISEASE Visit type - Emergency Visit Emergency Visit: No - New Patient This patient is new to me today: Yes Date on this admission: 03/14/16 - Critical Care Critical Care patient: No
[2016-03-11] MEDS: MORPHINE 100 MG in SODIUM CHLORIDE 98 ML IVPB SCH (13:20)
--- NOTE | 2016-03-11 15:47 | PN ---
Progress Note, Physician History of Present Illness: Pt seen and examined at bedside. She is awake and appears comfortable. Her family are at bedside. - Current Medication List Current Medications: Active Medications Acetaminophen (Tylenol -) 650 mg PO Q6H PRN PRN Reason: FEVER OR PAIN Last Admin: 03/07/16 14:43 Dose: 650 mg Albuterol/Ipratropium (Duoneb -) 1 amp NEB Q4H PRN PRN Reason: SHORTNESS OF BREATH Last Admin: 03/08/16 04:44 Dose: 1 amp Arformoterol Tartrate ([place] (Restricted To Pulmonology/Resp) -) 1 amp NEB BID TAM Last Admin: 03/11/16 10:50 Dose: 1 amp Bacitracin (Bacitracin -) 1 applic TP BID TAM Last Admin: 03/11/16 11:29 Dose: 1 applic Calcium Carbonate/Cholecalciferol (Os-Guille 500+D -) 2 tab PO DAILY TAM Last Admin: 03/11/16 11:10 Dose: Not Given Heparin Sodium (Porcine) (Heparin -) 5,000 unit SQ BID TAM Last Admin: 03/11/16 11:10 Dose: Not Given Piperacillin Sod/Tazobactam Sod (Zosyn 2.25gm Ivpb (Pre-Docked)) 50 mls @ 100 mls/hr IVPB Q8H-IV TAM Last Admin: 03/11/16 11:29 Dose: 100 mls/hr Morphine Sulfate 100 mg/ (Sodium Chloride) 100 mls @ 1 mls/hr IVPB TITR TAM; 1 MG/HR PRN Reason: Protocol Last Admin: 03/11/16 13:20 Dose: 1 mls/hr Ipratropium [place] (Atrovent 0.02% Nebulizer -) 1 amp NEB Q6H PRN PRN Reason: WHEEZING Multivitamins/Minerals/Vitamin C (Tab-A-Vit -) 1 tab PO DAILY TAM Last Admin: 03/11/16 11:10 Dose: Not Given Nystatin (Mycostatin Cream -) 1 applic TP Q6HPO TAM Last Admin: 03/11/16 11:29 Dose: 1 applic Ondansetron HCl (Zofran Injection) 4 mg IVPB Q6H PRN PRN Reason: NAUSEA Last Admin: 03/08/16 13:30 Dose: 4 mg Sevelamer Carbonate (Renvela Powder Packet -) 0.8 gm PO TIDCM TAM Last Admin: 03/11/16 13:22 Dose: Not Given - Objective Vital Signs: Vital Signs Temperature 99.0 F 03/11/16 14:12 Pulse Rate 83 03/11/16 14:12 Respiratory Rate 16 03/11/16 14:12 Blood Pressure 173/108 03/11/16 14:12 O2 Sat by Pulse Oximetry (%) 99 03/11/16 06:57 Constitutional: Yes: Calm Cardiovascular: Yes: S1, S2 Respiratory: Yes: On BiPap Gastrointestinal: Yes: Soft Genitourinary: Yes: WNL Musculoskeletal: Yes: Muscle Weakness Edema: No Labs: CBC, BMP 03/09/16 06:45 03/09/16 13:25 INR, PTT INR 1.24 (0.82-1.09) H 03/03/16 17:04 Problem List - Problems (1) COPD (chronic obstructive pulmonary disease) case management patient Code(s): NCC5172 - (2) Hypoglycemia Code(s): E16.2 - HYPOGLYCEMIA, UNSPECIFIED (3) ESRD (end stage renal disease) Code(s): N18.6 - END STAGE RENAL DISEASE (4) Tobacco dependence Code(s): F17.200 - NICOTINE DEPENDENCE, UNSPECIFIED, UNCOMPLICATED (5) Anemia, chronic renal failure Code(s): N18.9 - CHRONIC KIDNEY DISEASE, UNSPECIFIED D63.1 - ANEMIA IN CHRONIC KIDNEY DISEASE Qualifiers: Chronic kidney disease stage: stage 4 (severe) Qualified Code(s): N18.4 - Chronic kidney disease, stage 4 (severe); D63.1 - Anemia in chronic kidney disease Assessment/Plan Current Medications Generic Name Dose Route Start Last Admin Trade Name Freq PRN Reason Stop Dose Admin Acetaminophen 650 mg 03/07/16 13:14 03/07/16 14:43 Tylenol - PO 650 mg Q6H PRN Administration FEVER OR PAIN Albuterol/Ipratropium 1 amp 03/06/16 18:03 03/08/16 04:44 Duoneb - NEB 1 amp Q4H PRN Administration SHORTNESS OF BREATH Arformoterol Tartrate 1 amp 03/06/16 22:00 03/11/16 10:50 Brovana (Restricted To Pulmonology/Resp) - NEB 1 amp BID TAM Administration Bacitracin 1 applic 03/06/16 22:00 03/11/16 11:29 Bacitracin - TP 1 applic BID TAM Administration Calcium Carbonate/Cholecalciferol 2 tab 03/07/16 16:30 03/11/16 11:10 Os-Guille 500+D - PO Not Given DAILY TAM Heparin Sodium (Porcine) 5,000 unit 03/06/16 22:00 03/11/16 11:10 Heparin - SQ Not Given BID TAM Piperacillin Sod/Tazobactam Sod 50 mls @ 100 mls/hr 03/07/16 02:00 03/11/16 11: 29 Zosyn 2.25gm Ivpb (Pre-Docked) IVPB 100 mls/hr Q8H-IV TAM Administration Morphine Sulfate 100 mg/ 100 mls @ 1 mls/hr 03/11/16 12:00 03/11/16 13:20 Sodium Chloride IVPB 1 mls/hr TITR TAM Administration Protocol 1 MG/HR Ipratropium [place] 1 amp 03/08/16 20:04 Atrovent 0.02% Nebulizer - NEB Q6H PRN WHEEZING Multivitamins/Minerals/Vitamin C 1 tab 03/07/16 10:00 03/11/16 11:10 Tab-A-Vit - PO Not Given DAILY TAM Nystatin 1 applic 03/10/16 18:00 03/11/16 11:29 Mycostatin Cream - TP 1 applic Q6HPO TAM Administration Ondansetron HCl 4 mg 03/08/16 13:09 03/08/16 13:30 Zofran Injection IVPB 4 mg Q6H PRN Administration NAUSEA Sevelamer Carbonate 0.8 gm 03/07/16 08:00 03/11/16 13:22 Renvela Powder Packet - PO Not Given TIDCM TAM Impression 1. ESRD 2. dyspnea 3. COPD 4. throat cancer 5. respiratory failure requiring bipap 6. hyperkalemia 7. anemia 8. av graft malfunction Plan - HD stopped as per family request - pt on comfort measures - will follow - cont management per primary team - spoke to family Dr Pena
[2016-03-11] MEDS: KCL 10 MEQ IVPB 100 ML IVPB SCH (16:25)
[2016-03-12] MEDS: PIPERACILLIN/TAZOB 2.25 GM 50 ML IVPB SCH ×3 (02:08→17:02)
[2016-03-12] MEDS: NYSTATIN 100,000 UNIT/GM TOPICAL CREAM 15 GM TUBE TP SCH ×3 (06:44→17:01)
[2016-03-12] MEDS: SEVELAMER CARBONATE 0.8 GM POWDER PACKET PO SCH ×3 (10:23→16:57)
[2016-03-12] MEDS: BACITRACIN 30 GM TUBE TOPICAL OINTMENT TP SCH ×2 (10:24→21:37)
[2016-03-12] MEDS: HEPARIN NA (PORCINE) 5,000 UNITS/ML 1ML VIAL SQ SCH ×2 (10:24→21:38)
[2016-03-12] MEDS: CALCIUM 500MG/VIT-D 200 UNITS COMBO TABLET (FP) PO SCH (10:26)
[2016-03-12] MEDS: MULTIVITAMINS (DAILY MVI) TABLET (FP) PO SCH (10:26)
[2016-03-12] MEDS: ACETAMINOPHEN 325 MG TABLET (FP) PO PRN (12:03)
[2016-03-12] MEDS: MORPHINE 100 MG in SODIUM CHLORIDE 98 ML IVPB SCH (12:27)
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
[2016-03-12] MEDS: ARFORMOTEROL TARTRATE 15 MCG/2 ML VIAL NEB SCH (22:05)
[2016-03-13 00:08] VITALS: BP 146/93; PULSE 95; TEMP 99
[2016-03-13] MEDS: NYSTATIN 100,000 UNIT/GM TOPICAL CREAM 15 GM TUBE TP SCH (01:00)
[2016-03-13] MEDS: PIPERACILLIN/TAZOB 2.25 GM 50 ML IVPB SCH (03:00)
--- NOTE | 2016-03-13 04:29 | HOSP ---
Subjective - Review of Symptoms Subjective: note: Patient found to be unresponsive. No spontaneous respirations, no heart tones, no breath sounds, pupils fixed and dilated, no corneal reflex, no response to verbal or tactile stimuli, no extremity pulses. Patient pronounced at 4AM. Physical Examination Vital Signs: Vital Signs Temperature 03/12/16 22:00 Pulse Rate 03/12/16 22:00 Respiratory Rate 03/12/16 22:00 Blood Pressure 03/12/16 22:00 O2 Sat by Pulse Oximetry (%) 03/13/16 02:22 Labs: CBC, BMP 03/09/16 06:45 03/09/16 13:25
--- NOTE | 2016-04-15 09:10 | DS ---
Physical Exam: HOSPITAL COURSE: Date of Admission:03/03/16 Date of : 03/13/16 65yF with PMH ESRD, anemia, COPD, HTN, throat CA presented to the ED with SOB and altered mental status. Throat cancer - Unable to swallow d/t pain - s/p chemo 8 weeks ago - family requested palliative care - morphine drip started - 03/13/15 Acute on chronic respiratory failure ESRD (T/Th/Mon) - opted for no further dialysis Minutes to complete discharge: 35 Discharge Summary Reason For Visit: ESRD/LEUKOCYTOSIS/HYPOGLYCEMIA Current Active Problems COPD (chronic obstructive pulmonary disease) case management patient (Acute) UTI (urinary tract infection) (Acute) Volume overload (Acute) Hypertension (Chronic) - Instructions Referrals: Christoph Lemons [Primary Care Provider] - Disposition: - Home Medications Comprehensive Discharge Medication List: Ambulatory Orders Albuterol 2.5/Ipratropium 0.5 [Duoneb -] 1 neb IH QID 07/15/15 Multivitamin with Iron [Daily [place] with Iron] 1 each PO DAILY 07/15/15 Nifedipine ER [Procardia XL -] 90 mg PO DAILY 07/15/15 Paroxetine HCl 30 mg PO DAILY 07/15/15 Tiotropium [place] [Spiriva] 1 inh PO DAILY 07/15/15 Enalapril Maleate [Vasotec -] 20 mg PO BID #60 tablet 07/17/15 Labetalol HCl [Normodyne -] 400 mg PO TID #180 tablet 07/17/15 Sevelamer Carbonate [Renvela -] 800 mg PO TID 09/29/15 Budesonide/Formeterol Fumarate [SYMBICORT 160/4.5mcg -] 1 inh PO BID 10/13/15 Furosemide [Lasix -] 80 mg PO DAILY #30 tablet 10/15/15 This patient is new to me today: No Emergency Visit: Yes ED Registration Date: 03/03/16 Care time: The patient presented to the Emergency Department on the above date and was hospitalized for further evaluation of their emergent condition. Critical Care patient: No - Discharge Referral Referred to [facility] No
== END 2016-03-13 04:00 | disposition expired | DRG 189 ==
LOC: JER 16:37 → JERBED 20:46 → J4W 23:06 → JICU 03-04 15:20 → J5S 03-06 17:40
PROVIDERS: ADMIT Internal Medicine; ATTEND Nurse Practitioner Acute Care
PROC: 5A09557 Assistance with Respiratory Ventilation, Greater than 96 Consecutive Hours, Continuous Positive Airway Pressure (ICD-10-PCS; principal; 2016-03-04)
PROC: 05H533Z Insertion of Infusion Device into Right Subclavian Vein, Percutaneous Approach (ICD-10-PCS; 2016-03-05)
PROC: 30233N1 Transfusion of Nonautologous Red Blood Cells into Peripheral Vein, Percutaneous Approach (ICD-10-PCS; 2016-03-08)
DX: J96.21 Acute and chronic respiratory failure with hypoxia (principal); N18.6 End stage renal disease; J69.0 Pneumonitis due to inhalation of food and vomit; E43 Unspecified severe protein-calorie malnutrition; A41.9 Sepsis, unspecified organism; I12.0 Hypertensive chronic kidney disease with stage 5 chronic kidney disease or end stage renal disease; E87.2 Acidosis; R57.9 Shock, unspecified; Z68.1 Body mass index [BMI] 19.9 or less, adult; R64 Cachexia; J44.1 Chronic obstructive pulmonary disease with (acute) exacerbation; C14.0 Malignant neoplasm of pharynx, unspecified; J96.22 Acute and chronic respiratory failure with hypercapnia; E87.5 Hyperkalemia; R62.7 Adult failure to thrive; D63.1 Anemia in chronic kidney disease; D72.829 Elevated white blood cell count, unspecified; Z87.891 Personal history of nicotine dependence; E83.39 Other disorders of phosphorus metabolism; E86.0 Dehydration; R41.82 Altered mental status, unspecified
CPT/HCPCS: 36415; 36430; 36600; 71010-TC; 80048; 80053; 81003; 81015; 82550; 82803; 83605; 83735; 83880; 84100; 84134; 84484; 85025; 85027; 85610; 86704; 86706; 86708; 86803; 86850; 86900; 86901; 86922; 87040; 87086; 87340; 93005; 93010; 94640; 94660; 99283-25; J0885; J1644; P9058